=== PATIENT | male | born 1955 ===

== ENCOUNTER 2017-03-31 09:28 | Day surgery (SDC) | payer MEDICARE ==
[2017-03-30 15:08] VITALS: BMI 38.7
[2017-03-31 09:57] LABS: ADD MANUAL DIFF? NO
[2017-03-31 10:05] LABS: BASO # 0.01 K/mm3 (0.0-2.0); BASO % 0.2 % (0.0-3.0); EOS # 0.1 (0.0-0.7); EOS % 2.3 % (1.5-5.0); GRAN # 2.84 (1.4-6.5); GRAN % 47.2 % (50.0-68.0); LYMPH # 2.5 (1.2-3.4); LYMPH % 41.2 % (22.0-35.0); MEAN CORPUSCULAR HEMOGLOBIN 33.6 pg (25.0-35.0); MEAN CORPUSCULAR HGB CONC 33.6 g/dl (31.0-37.0); MONO # 0.6 (0.1-0.6); MONO % 9.1 % (1.0-6.0); PLATELET COUNT 222 10^3/uL (120.0-450.0); RED CELL DISTRIBUTION WIDTH 15.3 % (11.5-14.5)
[2017-03-31 10:08] LABS: CALCIUM 9.4 mg/dL (8.4-10.5); POTASSIUM 4.5 mmol/L (3.6-5.0)
[2017-03-31 10:12] LABS: INR 1.02 (0.93-1.08); PARTIAL THROMBOPLASTIN TIME 30.8 Seconds (23.7-30.8)
--- NOTE | 2017-03-31 10:33 | CP.SDSHP ---
Same Day Surgery H & P - History Proposed Procedure: Fistulogram Pre-Op Diagnosis: ESRD - Previous Medical/Surgical History Cardiac: Hypertension, Hx of CHF Endocrine/Metabolic: Diabetes (Diet controlled), Renal Disease (On HD ) Misc: Other (History of Anxiety,Tinnitus) Previous Surgical History: Hernioraphy. Dialysis catheter insertion. Creation of AV fistula - Allergies Allergies: Allergies shellfish derived Allergy (Verified 12/14/16 13:54) DIZZINESS - Physical Exam General Appearance: Obese male Mental Status: Alert & Oriented x3 Neuro: WNL Heart: WNL Lungs: Other (bibasilar crepts +) - {Optional Preform as Required} Abdomen: Other (abdomen is obese) Other Pertinent Findings: AV shunt noted in the L antecubital region.Bruit +, Thrill +. Trace pretibial edema noted. - Impression Impression: ESRD,on HD - Date & Time Date: 03/31/17 Time: 10:33 Short Stay Discharge - Short Stay Discharge Admitting Diagnosis/Reason for Visit: ESRD N18.6 Referrals: Jayne Boone MD [Primary Care Provider] -
[2017-03-31] MEDS ORDERED: Iodixanol 320 mg/ml 150 ml Bottle IV ONE (11:36)
[2017-03-31] MEDS ORDERED: Lidocaine 2% Inj (20ml) ONE (11:36)
[2017-03-31] MEDS ORDERED: Nitroglycerin 50mg in D5W 50 MG/250 ML BOTTLE IV ONE (11:37)
[2017-03-31] MEDS ORDERED: Midazolam 2 MG/2 ML VIAL ONE ×2 (12:49→13:22)
[2017-03-31] MEDS ORDERED: Oxycodone/Acetaminophen 5/325 mg Tab PO PRN (13:44)
[2017-03-31 14:09] VITALS: RESP 14; TEMP 98; O2SAT 100
[2017-03-31 14:49] VITALS: BP 124/72; PULSE 66
--- NOTE | 2017-04-05 07:51 | VASCULAR ---
PROCEDURE: 1. Left upper extremity AV fistula angiogram 2. Left innominate vein angioplasty HISTORY: End-stage renal disease. Malfunctioning AV access PHYSICIAN(S): Robinson Chiu MD. TECHNIQUE: The relative risks and indications of the procedure were explained to the patient and consent obtained. The patient was placed supine on the angiography table and the left arm prepped and draped in usual sterile fashion. Conscious sedation and monitoring provided throughout the procedure by a nurse. The left arm AV fistula was punctured near the elbow in an antegrade direction under ultrasound guidance with a micropuncture set. A 5 Tajik catheter was placed. An overlapping left upper extremity AV fistula angiogram was performed. Central venous imaging was obtained. Pressure was applied near the access site and reflux of the arterial anastomosis performed. Exchange is made for 7 Tajik sheath at the puncture site. The web-like stenosis in the left innominate vein was crossed with an angled Glidewire. Exchange is made for 0.035 support wire. The left innominate vein stenosis was dilated with a 14 mm balloon. No stent was required. The sheath was removed and hemostasis obtained. FINDINGS: The patient's left upper extremity brachial-cephalic fistula is patent. The arterial anastomosis is normal. The left cephalic vein is well developed above and below the elbow and straight. There is a web-like stenosis of the left innominate vein with collaterals. This was successfully dilated with a 14 mm balloon. The superior vena cava is patent. IMPRESSION: 1. 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 2. Successful left innominate vein angioplasty with a 14 mm balloon. 3. Well developed left brachial- cephalic fistula.
== END 2017-03-31 15:00 | disposition home or self-care (01) ==
LOC: SDSVAS 09:28
PROVIDERS: ATTEND Radiology Vascular & Interventional Radiology
DX: I13.2 Hypertensive heart and chronic kidney disease with heart failure and with stage 5 chronic kidney disease, or end stage renal disease (principal); N18.6 End stage renal disease; E11.22 Type 2 diabetes mellitus with diabetic chronic kidney disease; I50.9 Heart failure, unspecified; Z99.2 Dependence on renal dialysis; F41.9 Anxiety disorder, unspecified; H93.19 Tinnitus, unspecified ear; Z91.013 Allergy to seafood; E66.9 Obesity, unspecified; Z68.38 Body mass index [BMI] 38.0-38.9, adult
CPT/HCPCS: 36415; 36901; 36907; 80048; 85025; 85610; 85730; 99152; C1725; C1769 ×2; C1887; C1894; J1644; J2250; J2405; J3010

== ENCOUNTER 2017-05-23 06:16 | Day surgery (SDC) | payer MEDICARE ==
[2017-05-20 08:10] VITALS: BMI 37.3
[2017-05-23] MEDS ORDERED: Lidocaine 2% Inj (20ml) ONE (06:44)
[2017-05-23] MEDS ORDERED: Iodixanol 320 MG/ML 100 ML BOTTLE IV ONE (06:45)
[2017-05-23] MEDS ORDERED: Nitroglycerin 50mg in D5W 50 MG/250 ML BOTTLE IV ONE (06:45)
[2017-05-23] MEDS ORDERED: Iodixanol 320 MG/ML 200 ML BOTTLE IV ONE (06:45)
[2017-05-23] MEDS ORDERED: Midazolam 2 MG/2 ML VIAL ONE ×3 (07:07→08:20)
[2017-05-23 07:20] VITALS: O2SAT 97
[2017-05-23 07:25] LABS: BASO # 0.02 K/mm3 (0.0-2.0); BASO % 0.3 % (0.0-3.0); EOS # 0.2 (0.0-0.7); EOS % 3.1 % (1.5-5.0); GRAN # 3.57 (1.4-6.5); GRAN % 54.5 % (50.0-68.0); HEMOGLOBIN 11.3 gm/dL (14.0-18.0); LYMPH # 2.2 (1.2-3.4); MEAN CELL VOLUME 102.1 fL (80.0-105.0); MEAN CORPUSCULAR HEMOGLOBIN 34.3 pg (25.0-35.0); MEAN CORPUSCULAR HGB CONC 33.6 g/dl (31.0-37.0); MEAN PLATELET VOLUME 9.8 fl (7.0-11.0); MONO # 0.5 (0.1-0.6); MONO % 8.1 % (1.0-6.0); PLATELET COUNT 190 10^3/uL (120.0-450.0); RBC 3.29 10^6/uL (3.5-6.1); RED CELL DISTRIBUTION WIDTH 14.2 % (11.5-14.5); WHITE BLOOD COUNT 6.6 10^3/ul (4.5-11.0)
[2017-05-23 07:37] LABS: INR 1.01 (0.93-1.08); PARTIAL THROMBOPLASTIN TIME 30.3 Seconds (23.7-30.8); PROTHROMBIN TIME 10.9 Seconds (9.9-11.8)
[2017-05-23 07:39] LABS: CALCIUM 8.9 mg/dL (8.4-10.5)
[2017-05-23] MEDS ORDERED: Famotidine 20mg/50ml 0 MG/0 ML BAG IVPB ONE (07:41)
[2017-05-23] MEDS ORDERED: DiphenhydrAMINE 50 mg/ml Inj ONE (07:41)
--- NOTE | 2017-05-23 07:50 | CP.SDSHP ---
Same Day Surgery H & P - History Proposed Procedure: Femoral angiogram Pre-Op Diagnosis: PVD - Previous Medical/Surgical History Cardiac: Hypertension, Hx of CHF Endocrine/Metabolic: Diabetes, Renal Disease (ESRD on hemodialysis) Misc: Other (Obesity,Anxiety,history of Tinnitus,Restless leg syndrome) Pain: 0. No Pain Comments: Has c/o bilateral calf pain when he walks Previous Surgical History: L inguinal hernioraphy. Dialysis cather insertion. Creation of AV shunt L arm. Fistulogram - Allergies Allergies: Allergies shellfish derived Allergy (Verified 12/14/16 13:54) DIZZINESS - Physical Exam General Appearance: Obese male Vital Signs: Vital Signs 05/23/17 06:35 Temperature 97.8 F Pulse Rate 77 Respiratory 20 Rate Blood Pressure 144/81 O2 Sat by Pulse 97 Oximetry Mental Status: Alert & Oriented x3 Neuro: WNL Heart: WNL Lungs: WNL - {Optional Preform as Required} Abdomen: Other (Obese,old scar in the L inguinal region) Other Pertinent Findings: DP pulses felt by doppler. AV shunt noted in the L arm ,Bruit+,Thrill+. - Impression Impression: PVD - Date & Time Date: 05/23/17 Time: 07:50 Short Stay Discharge - Short Stay Discharge Admitting Diagnosis/Reason for Visit: PVD I70.213 Disposition: HOME/ ROUTINE Referrals: Jayne Boone MD [Primary Care Provider] -
[2017-05-23] MEDS ORDERED: Oxycodone/Acetaminophen 5/325 mg Tab PO PRN (08:42)
[2017-05-23 08:58] VITALS: TEMP 98
[2017-05-23] MEDS ORDERED: Oxycodone/Acetaminophen 5/325 mg Tab ONE (09:05)
[2017-05-23] MEDS ORDERED: Oxycodone/Acetaminophen 5/325 mg Tab PO ONE (09:06)
[2017-05-23 09:36] VITALS: RESP 20
[2017-05-23 10:11] VITALS: BP 183/85; PULSE 76
--- NOTE | 2017-05-23 16:43 | VASCULAR ---
PROCEDURE: Abdominal aortogram and bilateral lower extremity runoff. HISTORY: Peripheral vascular disease with severe claudication. End stage renal disease. Diabetes PHYSICIAN(S): Robinson Chiu MD. TECHNIQUE: The relative risks and indications of the procedure were explained to the patient and consent obtained. The patient was hydrated prior to the procedure and the appropriate labs drawn. The patient was placed supine on the arteriogram table and the right groin prepped and draped in the usual sterile fashion. Conscious sedation and monitoring were provided throughout the procedure by a nurse. Via a right common femoral artery approach, a 5 Niuean sheath was placed in the right groin. Through the sheath and over a guidewire, a 5 Niuean flush catheter was placed in the abdominal aorta at the level of the renal arteries and a PA DSA abdominal aortogram performed. The catheter was pulled down to the aortic bifurcation and bilateral oblique DSA pelvic arteriograms performed. Overlapping bilateral lower extremity DSA arteriograms were obtained from the inguinal ligaments to the ankles. Due to the patient's persistent movement despite additional conscious sedation, no intervention was felt to be safe for performed. The sheath was removed hemostasis obtained with a Perclose device. FINDINGS: All imaging is degraded by motion. Diffuse vascular calcification is noted. The right renal artery is atretic. The left main renal artery is patent. The nephrograms are not well seen, consistent with dialysis. The infrarenal abdominal aorta is calcified patent. Aortic bifurcation is patent. The common and external iliac arteries are patent on two views. The internal iliac arteries are patent bilaterally. Right lower extremity: The right common femoral artery is calcified and patent. The right profunda femoral artery is patent. There is diffuse calcification of the right SFA. Multiple mild to moderate stenosis is seen. There may be a severe web-like stenosis in the adductor canal. The right popliteal artery is continuous. There is severe right trifurcation and tibial occlusive disease. There appears to be a single right tibial runoff via the anterior tibial artery. Is not well seen due to motion. Left lower extremity: Left common femoral artery is calcified and patent. The left profunda femoral artery is calcified and patent. The left SFA is diffusely calcified with multiple mild to moderate stenoses. There appears to be a severe stenosis of the left SFA in the adductor canal. The left popliteal artery is calcified and continuous. Once again the left tibial imaging is severely limited due to motion. There appears to be 1 vessel runoff via the left anterior tibial artery. IMPRESSION: 1. Extremely limited study due to the patient's motion and inability to cooperate. No intervention was performed. 2. Severe bilateral tibial occlusive disease. There appears to be 1 vessel tibial runoff bilaterally but this is not well seen due to motion. 3. Calcified SFA disease bilaterally. Multiple mild to moderate stenoses are present. There may be moderate to severe focal stenoses in the adductor canal. These are not well seen due to motion.
== END 2017-05-23 12:00 | disposition home or self-care (01) ==
LOC: SDSVAS 06:16
PROVIDERS: ATTEND Radiology Vascular & Interventional Radiology
DX: I70.213 Atherosclerosis of native arteries of extremities with intermittent claudication, bilateral legs (principal); E11.51 Type 2 diabetes mellitus with diabetic peripheral angiopathy without gangrene; E11.22 Type 2 diabetes mellitus with diabetic chronic kidney disease; N18.6 End stage renal disease; I50.9 Heart failure, unspecified; I13.2 Hypertensive heart and chronic kidney disease with heart failure and with stage 5 chronic kidney disease, or end stage renal disease; G25.81 Restless legs syndrome; E66.9 Obesity, unspecified; Z99.2 Dependence on renal dialysis
CPT/HCPCS: 36200; 36415; 75625; 75716; 80048; 85025; 85610; 85730; 99152; C1760; C1769; C1887; C1894; J1200; J1644; J1720; J2250; J2405; J3010; Q9967

== ENCOUNTER 2017-08-22 02:14 | Emergency (ER) | payer MEDICARE ==
[2017-08-22 02:15] VITALS: BMI 37.3
--- NOTE | 2017-08-22 02:30 | ED PDOC ---
Arrival/HPI - General Time Seen by Provider: 08/22/17 02:16 Historian: Patient - History of Present Illness Narrative History of Present Illness (Text): 08/22/17 02:20 Bekah Wheeler is a 61 year old male, whose past medical history includes hypertension, diabetes, CHF, and chronic renal failure on dialysis (MWF), who presents to the emergency department complaining of shortness of breath that began about 2 hours ago. Patient notes that he has no breathing treatments at home and has dialysis this morning at 05:00. Patient denies any chest pain, abdominal pain, or any other complaints at this time. Time/Duration: 1-3 hours Symptom Onset: Gradual Symptom Course: Unchanged Severity Level: Mild Activities at Onset: Light Context: Home Past Medical History - Provider Review Nursing Documentation Reviewed: Yes - Infectious Disease Hx of Infectious Diseases: None - Cardiac Hx Pacemaker: No - Pulmonary Hx Respiratory Disorders: No - Neurological Hx Paralysis: No - HEENT Hx HEENT Disorder: No - Renal Hx Renal Disorder: No - Endocrine/Metabolic Hx Endocrine Disorders: Yes Hx Diabetes Mellitus Type 2: Yes - Hematological/Oncological Hx Blood Transfusions: No Hx Blood Transfusion Reaction: No - Integumentary Hx Dermatological Disorder: No - Musculoskeletal/Rheumatological Hx Musculoskeletal Disorders: No - Gastrointestinal Hx Gastrointestinal Disorders: No - Genitourinary/Gynecological Hx Genitourinary Disorders: No - Psychiatric Hx Emotional Abuse: No Hx Physical Abuse: No Hx Substance Use: No - Surgical History Other/Comment: Hernia - Anesthesia Hx Anesthesia Reactions: No Hx Malignant Hyperthermia: No - Suicidal Assessment Feels Threatened In Home Enviroment: No Family/Social History - Physician Review Nursing Documentation Reviewed: Yes Family/Social History: No Known Family HX Smoking Status: Never Smoked Hx Alcohol Use: No Hx Substance Use: No Hx Substance Use Treatment: No Allergies/Home Meds Allergies/Adverse Reactions: Allergies shellfish derived Allergy (Verified 08/22/17 02:36) DIZZINESS Home Medications: Home Meds Medication Instructions Recorded Confirmed Calcium Acetate [Phoslo] 667 mg PO ACTID 12/13/16 05/23/17 Metoprolol Tartrate [Lopressor] 50 mg PO QAM PRN 12/13/16 05/23/17 Pregabalin [Lyrica] 100 mg PO DAILY 03/30/17 05/23/17 rOPINIRole [Requip] 1 mg PO QPM 05/20/17 05/23/17 Review of Systems - Physician Review All systems were reviewed & negative as marked: Yes - Review of Systems Constitutional: absent: Fevers, Night Sweats Eyes: absent: Vision Changes ENT: absent: Hearing Changes Respiratory: SOB Cardiovascular: absent: Chest Pain Gastrointestinal: absent: Abdominal Pain Genitourinary Male: absent: Dysuria, Frequency, Urinary Output Changes Musculoskeletal: absent: Arthralgias Skin: absent: Rash, Pruritis Neurological: absent: Headache, Dizziness Endocrine: absent: Diaphoresis Hemo/Lymphatic: absent: Adenopathy Psychiatric: absent: Depression Physical Exam Vital Signs Temp Pulse Resp BP Pulse Ox 08/22/17 03:37 105 H 26 H 188/89 H 100 08/22/17 02:18 97.8 F 74 28 H 195/94 H 100 - Systems Exam Head: Present: Atraumatic, Normocephalic Pupils: Present: PERRL Extroacular Muscles: Present: EOMI Conjunctiva: Present: Normal Mouth: Present: Moist Mucous Membranes Neck: Present: Normal Range of Motion Respiratory/Chest: Present: Rhonchi (bilaterally) Cardiovascular: Present: Regular Rate and Rhythm, Normal S1, S2. No: Murmurs Abdomen: Present: Normal Bowel Sounds. No: Tenderness, Distention, Peritoneal Signs Back: Present: Normal Inspection Upper Extremity: Present: Normal Inspection. No: Cyanosis, Edema Lower Extremity: Present: Normal Inspection. No: Edema Neurological: Present: GCS=15, CN II-XII Intact, Speech Normal Skin: Present: Warm, Dry, Normal Color. No: Rashes Psychiatric: Present: Alert, Oriented x 3, Normal Insight, Normal Concentration Medical Decision Making ED Course and Treatment: 08/22/17 02:30 Impression: 61 year old male complaining of shortness of breath that began about 2 hours ago. Differential Diagnosis included but are not limited to: Plan: -- EKG -- Chest X-ray -- Labs -- Reassess and disposition Prior Visits: Notes and results from previous visits were reviewed. Patient last seen in the ED on 08/23/16 for shortness of breath for 2-3 days. Patient was admitted to hospitalist care for further evaluation. Progress Notes: EKG: Ordered, reviewed, and independently interpreted the EKG. Rate : 80 BPM Rhythm : NSR Interpretation : Lateral T wave changes Comparison : No previous EKG for comparison. 08/22/17 03:[address] Boone, who is aware and agrees to admit patient to telemetry observation. Patient to go to dialysis shortly. - Lab Interpretations Lab Results: 08/22/17 02:15 08/22/17 02:15 Lab Results 08/22/17 02:38: POC Glucose (mg/dL) 102 08/22/17 02:15: WBC 7.4, RBC 3.49 L, Hgb 11.7 L, Hct 35.1 L, MCV 100.6, MCH 33.5 , MCHC 33.3, RDW 13.7, Plt Count 272, MPV 9.7 08/22/17 02:15: Sodium 139, Potassium 4.8, Chloride 97 L, Carbon Dioxide 25, Anion Gap 22 H, BUN 60 H, Creatinine 11.5 H*, Est GFR ( Amer) 5, Est GFR (Non-Af Amer) 5, Random Glucose 108, Calcium 9.2, Total Bilirubin 0.6, AST 25, ALT 30, Alkaline Phosphatase 75, Lactate Dehydrogenase 449, Total Creatine Kinase 129, Troponin I 0.08 D, NT-Pro-B Natriuret Pep 92467 H, Total Protein 6.9, Albumin 4.1, Globulin 2.9, Albumin/Globulin Ratio 1.4 08/22/17 02:15: PT 11.9, INR 1.09 H, APTT 33.3 I have reviewed the lab results: Yes - RAD Interpretation Narrative RAD Interpretations (Text): 08/22/17 03:30 CXR- c/w CHF Radiology Orders: 08/22/17 02:29 CHEST PORTABLE [RAD] Stat Complaint Inspector: ED Physician - Medication Orders Current Medication Orders: Discontinued Medications Albuterol/Ipratropium (Duoneb 3 Mg/0.5 Mg (3 Ml) Ud) 3 ml IH ONCE STA Stop: 08/22/17 02:32 Last Admin: 08/22/17 02:45 Dose: 3 ml - Scribe Statement The provider has reviewed the documentation as recorded by the Scribe Betsey Sherwood Provider Scribe Attestation: All medical record entries made by the Scribe were at my direction and personally dictated by me. I have reviewed the chart and agree that the record accurately reflects my personal performance of the history, physical exam, medical decision making, and the department course for this patient. I have also personally directed, reviewed, and agree with the discharge instructions and disposition. Disposition/Present on Arrival - Present on Arrival Any Indicators Present on Arrival: No History of DVT/PE: No History of Uncontrolled Diabetes: No Urinary Catheter: No History of Decub. Ulcer: No History Surgical Site Infection Following: None - Disposition Have Diagnosis and Disposition been Completed?: Yes Diagnosis: Renal failure, CHF (congestive heart failure) Disposition: HOSPITALIZED Disposition Time: 03:49 Condition: STABLE Discharge Instructions (ExitCare): Heart Failure (ED)
[2017-08-22] MEDS ORDERED: Albuterol-Ipratrop 3 mg / 0.5 (3 ml) UD IH STA (02:31)
[2017-08-22 02:36] VITALS: TEMP 97.8; O2SAT 100
[2017-08-22 02:45] LABS: HEMATOCRIT 35.1 % (42.0-52.0); MEAN CELL VOLUME 100.6 fl (80.0-105.0); MEAN CORPUSCULAR HEMOGLOBIN 33.5 pg (25.0-35.0); MEAN CORPUSCULAR HGB CONC 33.3 g/dl (31.0-37.0); MEAN PLATELET VOLUME 9.7 fl (7.0-11.0); RED CELL DISTRIBUTION WIDTH 13.7 % (11.5-14.5); WHITE BLOOD COUNT 7.4 10^3/ul (4.5-11.0)
[2017-08-22 02:50] LABS: ALB/GLOB RATIO 1.4 (1.1-1.8); BILIRUBIN,TOTAL 0.6 mg/dL (0.2-1.3); CALCIUM 9.2 mg/dL (8.4-10.5); POTASSIUM 4.8 mmol/L (3.6-5.0); TOTAL PROTEIN 6.9 g/dL (5.8-8.3)
[2017-08-22 02:58] LABS: INR 1.09 (0.93-1.08); PARTIAL THROMBOPLASTIN TIME 33.3 Seconds (25.1-36.5)
[2017-08-22 03:26] LABS: TROPONIN I 0.08 ng/mL
[2017-08-22 04:29] VITALS: BP 198/108; PULSE 80; RESP 21
--- NOTE | 2017-08-22 08:29 | CP.PCM.HP ---
History of Present Illness - History of Present Illness History of Present Illness: 61 year old male with history of type II diabetes with neuropathy, end stage renal disease on hemodialysis, hypertension, and peripheral vascular disease presented to the Emergency Room early this morning with shortness of breath for 2 hours. Patient denies chest pain, diaphoresis, or abdominal pain. Present on Admission - Present on Admission Any Indicators Present on Admission: Yes History of DVT/PE: No History of Uncontrolled Diabetes: Yes Urinary Catheter: No Decubitus Ulcer Present: No Review of Systems - Constitutional Constitutional: absent: Chills, Excessive Sweating, Fever - Cardiovascular Cardiovascular: As Per HPI - Respiratory Respiratory: As Per HPI - Gastrointestinal Gastrointestinal: absent: Abdominal Pain, Nausea, Vomiting Past Patient History - Infectious Disease Hx of Infectious Diseases: None - Past Social History Smoking Status: Never Smoked - CARDIAC Hx Hypertension: Yes Hx Pacemaker: No Hx Peripheral Vascular Disease: Yes - PULMONARY Hx Respiratory Disorders: No - NEUROLOGICAL Hx Paralysis: No - HEENT Hx HEENT Problems: No - RENAL Hx Dialysis: Yes - ENDOCRINE/METABOLIC Hx Endocrine Disorders: Yes Hx Diabetes Mellitus Type 2: Yes - HEMATOLOGICAL/ONCOLOGICAL Hx Blood Transfusions: No Hx Blood Transfusion Reaction: No - INTEGUMENTARY Hx Dermatological Problems: No - MUSCULOSKELETAL/RHEUMATOLOGICAL Hx Musculoskeletal Disorders: No - GASTROINTESTINAL Hx Gastrointestinal Disorders: No - GENITOURINARY/GYNECOLOGICAL Hx Genitourinary Disorders: No - PSYCHIATRIC Hx Emotional Abuse: No Hx Physical Abuse: No Hx Substance Use: No - SURGICAL HISTORY Other/Comment: Hernia - ANESTHESIA Hx Anesthesia Reactions: No Hx Malignant Hyperthermia: No Meds Allergies/Adverse Reactions: Allergies Allergy/AdvReac Type Severity Reaction Status Date / Time shellfish derived Allergy DIZZINESS Verified 08/22/17 02:36 Physical Exam - Constitutional Appears: No Acute Distress - Head Exam Head Exam: ATRAUMATIC, NORMOCEPHALIC - Respiratory Exam Respiratory Exam: Rhonchi - Cardiovascular Exam Cardiovascular Exam: +S1, +S2 - GI/Abdominal Exam GI & Abdominal Exam: Normal Bowel Sounds, Soft. absent: Tenderness - Neurological Exam Neurological exam: Alert, Oriented x3 Results - Vital Signs Recent Vital Signs: Last Vital Signs Temp 97.8 F 08/22/17 02:18 Pulse 80 08/22/17 04:28 Resp 21 08/22/17 04:28 BP 198/108 H 08/22/17 04:28 Pulse Ox 100 08/22/17 04:28 - Labs Result Diagrams: 08/22/17 02:15 08/22/17 02:15 Assessment & Plan - Assessment and Plan (Free Text) Assessment: Acute diastolic heart failure ESRD on hemodialysis HTN DMII PVD Plan: Patient with acute exacerbation of diastolic heart failure. Patient will have hemodialysis today. check iron, B12 and folate levels for anemia continue metoprolol for blood pressure accuchecks with sliding scale coverage
--- NOTE | 2017-08-22 08:59 | RAD ---
HISTORY: Shortness of breath COMPARISON: 08/23/2016. FINDINGS: LUNGS: The lungs are well inflated. There is mild pulmonary venous congestion. There are also prominent interstitial markings in the lower lobes. PLEURA: No significant pleural effusion identified, no pneumothorax apparent. CARDIOVASCULAR: There is persistent mild cardiomegaly OSSEOUS STRUCTURES: No significant abnormalities. VISUALIZED UPPER ABDOMEN: Normal. OTHER FINDINGS: None. IMPRESSION: Pulmonary venous congestion and mild interstitial pulmonary edema may represent a component of congestive heart failure. Persistent cardiomegaly.
[2017-08-22 09:11] LABS: IRON 88 ug/dL (45-180)
--- NOTE | 2017-08-22 09:29 | CARD ---
APPROVED REPORT EKG Measurement Heart [id number] PA 152P0 [id number] <Conclusion> Normal sinus rhythm LVH by voltage T wave abnormality, consider lateral ischemia No change except the QTC is normal now.
[2017-08-22] MEDS ORDERED: Insulin Reg-LOW-Coverage SC SCH (11:30)
--- NOTE | 2017-08-22 12:34 | CP.PCM.PN ---
Subjective - Date & Time of Evaluation Date of Evaluation: 08/22/17 Time of Evaluation: 12:29 - Subjective Subjective: Fluid Overload Objective - Vital Signs/Intake and Output Vital Signs (last 24 hours): Temp Pulse Resp BP Pulse Ox 97.8 F 80 21 198/108 H 100 08/22/17 02:18 08/22/17 04:28 08/22/17 04:28 08/22/17 04:28 08/22/17 04:28 T-98.8 HR-82 B/P-160/84 RR-16 SO2-99% RA at 1234 - Medications Medications: Current Medications Calcium Acetate (Phoslo) 667 mg PO ACTID YONIS Insulin Human Regular (Humulin R Low) 0 units SC ACHS YONIS PRN Reason: Protocol Metoprolol Tartrate (Lopressor) 50 mg PO QAM YONIS Pregabalin (Lyrica) 100 mg PO DAILY YONIS Ropinirole HCl (Requip) 1 mg PO QPM YONIS - Labs Labs: PT 11.9 SECONDS (9.4-12.5) 08/22/17 02:15 INR 1.09 (0.93-1.08) H 08/22/17 02:15 APTT 33.3 Seconds (25.1-36.5) 08/22/17 02:15 - Constitutional Appears: Well, Non-toxic, No Acute Distress - Head Exam Head Exam: ATRAUMATIC, NORMAL INSPECTION, NORMOCEPHALIC - Eye Exam Eye Exam: EOMI, Normal appearance, PERRL Pupil Exam: NORMAL ACCOMODATION, PERRL - ENT Exam ENT Exam: Mucous Membranes Moist, Normal Exam - Neck Exam Neck Exam: Full ROM, Normal Inspection - Respiratory Exam Respiratory Exam: Clear to Ausculation Bilateral, NORMAL BREATHING PATTERN Additional comments: post HD treatment - Cardiovascular Exam Cardiovascular Exam: REGULAR RHYTHM, +S1, +S2 - GI/Abdominal Exam GI & Abdominal Exam: Soft, Normal Bowel Sounds - Extremities Exam Extremities Exam: Full ROM, Normal Capillary Refill, Normal Inspection - Back Exam Back Exam: Full ROM, NORMAL INSPECTION - Neurological Exam Neurological Exam: Alert, Awake, CN II-XII Intact, Normal Gait, Oriented x3 Neuro motor strength exam: Left Upper Extremity: 5, Right Upper Extremity: 5, Left Lower Extremity: 5, Right Lower Extremity: 5 - Psychiatric Exam Psychiatric exam: Normal Affect, Normal Mood - Skin Skin Exam: Dry, Intact, Normal Color, Warm Assessment and Plan - Assessment and Plan (Free Text) Assessment: Fluid Overload Plan: HD TX completed D/C home discussed with Dr. Luna medications as per med reconciliation Will continue with regular HD schedule Patient will see Dr. Luna in office today. Return to ER if indicated discussed with patient stated he will see Dr. Luna today.
[2017-08-22 12:55] LABS: FOLATE 6.9 ng/mL
== END 2017-08-22 12:59 | disposition home or self-care (01) ==
LOC: ED 02:14 → ERH 03:42 → UNDOADMOB 03:42 → ERH 04:00 → ED 12:59 → UNDODISOB 12:59
DX: I12.9 Hypertensive chronic kidney disease with stage 1 through stage 4 chronic kidney disease, or unspecified chronic kidney disease (principal); N18.9 Chronic kidney disease, unspecified; I50.9 Heart failure, unspecified; E11.9 Type 2 diabetes mellitus without complications; Z99.2 Dependence on renal dialysis

== ENCOUNTER 2017-11-14 10:42 | Emergency (ER) | payer MEDICARE ==
[2017-11-14 10:43] VITALS: BMI 37.3
[2017-11-14 11:12] VITALS: RESP 18; TEMP 99
--- NOTE | 2017-11-14 11:25 | ED PDOC ---
Arrival/HPI - General Time Seen by Provider: 11/14/17 10:53 Historian: Patient - History of Present Illness Narrative History of Present Illness (Text): 11/14/17 11:11 A 62 year old male whose past medical history includes, hypertension, diabetes, CHF, and chronic renal failure on dialysis (MWF), presents to the emergency department complaining of urine retention since yesterday morning with a subjective fever which resolved yesterday. The patient notes that he is currently in pain and underwent dialysis this morning with no complications. He states that although he attends dialysis, he urinate 3-4 times per day. The patient states that he had similar symptoms in 08/16. The patient denies chills , headache, dizziness, chest pain, shortness of breath, dyspnea on exertion, cough, nausea, vomiting, diarrhea, back pain, neck pain, bowel changes, or any other complaint. PMD: Dr. Boone Time/Duration: Other (Yesterday) Symptom Onset: Sudden Symptom Course: Unchanged Activities at Onset: Rest, Light Context: Home Past Medical History - Provider Review Nursing Documentation Reviewed: Yes - Infectious Disease Hx of Infectious Diseases: None - Cardiac Hx Hypertension: Yes Hx Pacemaker: No Hx Peripheral Vascular Disease: Yes - Pulmonary Hx Respiratory Disorders: No - Neurological Hx Paralysis: No - HEENT Hx HEENT Disorder: No - Renal Hx Dialysis: Yes - Endocrine/Metabolic Hx Endocrine Disorders: Yes Hx Diabetes Mellitus Type 2: Yes - Hematological/Oncological Hx Blood Transfusions: No Hx Blood Transfusion Reaction: No - Integumentary Hx Dermatological Disorder: No - Musculoskeletal/Rheumatological Hx Musculoskeletal Disorders: No - Gastrointestinal Hx Gastrointestinal Disorders: No - Genitourinary/Gynecological Hx Genitourinary Disorders: No - Psychiatric Hx Emotional Abuse: No Hx Physical Abuse: No Hx Substance Use: No - Surgical History Other/Comment: Hernia - Anesthesia Hx Anesthesia Reactions: No Hx Malignant Hyperthermia: No - Suicidal Assessment Feels Threatened In Home Enviroment: No Family/Social History - Physician Review Nursing Documentation Reviewed: Yes Family/Social History: No Known Family HX Smoking Status: Never Smoked Hx Alcohol Use: No Hx Substance Use: No Hx Substance Use Treatment: No Allergies/Home Meds Allergies/Adverse Reactions: Allergies shellfish derived Allergy (Verified 11/14/17 11:08) DIZZINESS Home Medications: Home Meds Medication Instructions Recorded Confirmed Calcium Acetate [Phoslo] 667 mg PO ACTID 12/13/16 08/22/17 Metoprolol Tartrate [Lopressor] 50 mg PO QAM PRN 12/13/16 08/22/17 Pregabalin [Lyrica] 100 mg PO DAILY 03/30/17 08/22/17 rOPINIRole [Requip] 1 mg PO QPM 05/20/17 08/22/17 Review of Systems - Physician Review All systems were reviewed & negative as marked: Yes - Review of Systems Constitutional: Fevers Respiratory: absent: SOB Cardiovascular: absent: Chest Pain Gastrointestinal: absent: Stool Changes, Diarrhea, Nausea, Vomiting Genitourinary Male: Urinary Output Changes (Urinary retention) Musculoskeletal: absent: Back Pain, Neck Pain Neurological: absent: Headache, Dizziness Physical Exam Vital Signs Reviewed: Yes Vital Signs Temp Pulse Resp BP Pulse Ox 11/14/17 12:53 89 18 175/86 H 97 11/14/17 11:09 99.0 F 96 H 18 193/95 H 100 Temperature: Afebrile Blood Pressure: Hypertensive Pulse: Tachycardic Respiratory Rate: Normal Appearance: Positive for: Well-Appearing, Non-Toxic, Comfortable Pain Distress: Mild (Mild distress due to abdominal discomfort) Mental Status: Positive for: Alert and Oriented X 3 - Systems Exam Head: Present: Atraumatic, Normocephalic Pupils: Present: PERRL Extroacular Muscles: Present: EOMI Conjunctiva: Present: Normal Mouth: Present: Moist Mucous Membranes Neck: Present: Normal Range of Motion Respiratory/Chest: Present: Clear to Auscultation, Good Air Exchange. No: Respiratory Distress, Accessory Muscle Use Cardiovascular: Present: Regular Rate and Rhythm, Normal S1, S2. No: Murmurs Abdomen: Present: Distention (minimally distended). No: Rebound, Guarding, Hernias, Mass/Organomegaly (No palpable masses) Back: Present: Normal Inspection Upper Extremity: Present: Other (left upper extremity dialysis graft with palpable thrill. ) Lower Extremity: Present: Normal Inspection. No: Edema Neurological: Present: GCS=15, CN II-XII Intact, Speech Normal Skin: Present: Warm, Dry, Normal Color. No: Rashes Psychiatric: Present: Alert, Oriented x 3, Normal Insight, Normal Concentration Medical Decision Making ED Course and Treatment: 11/14/17 11:26 Impression: A 62 year old male presents to the emergency department complaining of urinary retention and subjective fever. Plan: -- Urinalysis -- Reassess and disposition Progress Notes: 11/14/17 12:48: 200 cc's of clear yellow urine out. Urinalysis equivocal, however, patient still has symptoms of urgency and fullness of the bladder. Will draw blood cultures and start empiric antibiotics pending results. - Lab Interpretations Lab Results: Lab Results 11/14/17 11:45: Urine Color yellow, Urine Appearance Clear, Urine pH 7.0, Ur Specific Kingsley 1.015, Urine Protein 100 H, Urine Glucose (UA) 250 H, Urine Ketones Negative, Urine Blood Small H, Urine Nitrate Negative, Urine Bilirubin Negative, Urine Urobilinogen 0.2, Ur Leukocyte Esterase Negative, Urine RBC 5 - 10, Urine WBC 2 - 5, Ur Epithelial Cells 6 - 8 - Medication Orders Current Medication Orders: Gentamicin Sulfate 120 mg/ (Sodium Chloride) 103 mls @ 100 mls/hr IVPB STAT STA PRN Reason: Protocol Stop: 11/14/17 13:54 Vancomycin HCl 1.5 gm/ Sodium (Chloride) 250 mls @ 167 mls/hr IVPB ONCE ONE PRN Reason: Protocol Stop: 11/14/17 14:19 - Scribe Statement The provider has reviewed the documentation as recorded by the Jackyibe Hortencia Eden Provider Scribe Attestation: All medical record entries made by the Scribe were at my direction and personally dictated by me. I have reviewed the chart and agree that the record accurately reflects my personal performance of the history, physical exam, medical decision making, and the department course for this patient. I have also personally directed, reviewed, and agree with the discharge instructions and disposition. Disposition/Present on Arrival - Present on Arrival Any Indicators Present on Arrival: No History of DVT/PE: No History of Uncontrolled Diabetes: Yes Urinary Catheter: No History Surgical Site Infection Following: None - Disposition Have Diagnosis and Disposition been Completed?: Yes Diagnosis: Cystitis, Renal failure Disposition: HOME/ ROUTINE Disposition Time: 14:45 Patient Plan: Discharge Condition: STABLE Additional Instructions: Return to ER if symptoms become worse or if high fever develops. Continue usual dialysis schedule. See your doctor this week. Referrals: Jayne Boone MD [Primary Care Provider] - Follow up with primary
[2017-11-14 11:55] LABS: URINE BILIRUBIN NEGATIVE (NEGATIVE); URINE BLOOD SMALL (NEGATIVE); URINE GLUCOSE (UA) 250 mg/dL (NEGATIVE); URINE LEUKOCYTE ESTERASE NEGATIVE Leu/uL (NEGATIVE); URINE NITRATE NEGATIVE (NEGATIVE); URINE PROTEIN 100 mg/dL (<30 mg/dL); URINE UROBILINOGEN 0.2 E.U./dL (<1 E.U./dL)
[2017-11-14 11:59] LABS: URINE APPEARANCE CLEAR (CLEAR)
[2017-11-14 13:46] LABS: EOS % 0.7 % (1.5-5.0); GRAN # 3.02 (1.4-6.5); GRAN % 67.2 % (50.0-68.0); HEMOGLOBIN 13.2 g/dL (14.0-18.0); LYMPH # 0.7 (1.2-3.4); LYMPH % 16.3 % (22.0-35.0); MEAN CELL VOLUME 102.8 fl (80.0-105.0); MEAN CORPUSCULAR HEMOGLOBIN 34.2 pg (25.0-35.0); MEAN CORPUSCULAR HGB CONC 33.2 g/dl (31.0-37.0); MEAN PLATELET VOLUME 9.6 fl (7.0-11.0); MONO # 0.7 (0.1-0.6); MONO % 15.8 % (1.0-6.0); RBC 3.86 10^6/uL (3.5-6.1); RED CELL DISTRIBUTION WIDTH 15.4 % (11.5-14.5); WHITE BLOOD COUNT 4.5 10^3/ul (4.5-11.0)
[2017-11-14 13:49] LABS: CALCIUM 9.8 mg/dL (8.4-10.5)
[2017-11-14 15:36] VITALS: O2SAT 96
[2017-11-14 17:04] VITALS: BP 189/96; PULSE 89
== END 2017-11-14 17:11 | disposition home or self-care (01) ==
LOC: ED 10:42
DX: N30.90 Cystitis, unspecified without hematuria (principal); I12.9 Hypertensive chronic kidney disease with stage 1 through stage 4 chronic kidney disease, or unspecified chronic kidney disease; E11.22 Type 2 diabetes mellitus with diabetic chronic kidney disease; N18.9 Chronic kidney disease, unspecified; Z99.2 Dependence on renal dialysis
CPT/HCPCS: 80048; 81001; 85025; 87040; 87086; 96374; 96375; 99284; J1580

== ENCOUNTER 2017-11-17 03:44 | Emergency (ER) | payer MEDICARE ==
[2017-11-17 03:47] VITALS: BMI 37.3
[2017-11-17 04:09] VITALS: RESP 18; TEMP 98.3
--- NOTE | 2017-11-17 04:24 | ED PDOC ---
Arrival/HPI - General Chief Complaint: Male Genitourinary Time Seen by Provider: 11/17/17 04:15 Historian: Patient - History of Present Illness Narrative History of Present Illness (Text): 11/17/17 04:23 Clarke Wheeler is a 62 year old male, whose past medical history includes ESRD with hemodialysis on M/W/F, hypertension, diabetes, and CHF, who presents to the Emergency department complaining of urinary retention. Patient states he is still able to produce urine despite being on hemodialysis, but has been experiencing difficulty voiding his urine for the past 2 days. Patient notes he was seen on 11/14/17 for similar complaints and had a Rowe catheter placed with relief. Patient states Rowe catheter was removed in ER and patient was discharged home. Patient denies any fever, chills, chest pain, shortness of breath, nausea, vomiting, back pain, neck pain, headache, dizziness, or any other complaints. Symptom Onset: Gradual Symptom Course: Unchanged Activities at Onset: Light Context: Home Past Medical History - Provider Review Nursing Documentation Reviewed: Yes - Infectious Disease Hx of Infectious Diseases: None - Cardiac Hx Hypertension: Yes Hx Pacemaker: No Hx Peripheral Vascular Disease: Yes - Pulmonary Hx Respiratory Disorders: No - Neurological Hx Neurological Disorder: No Hx Paralysis: No - HEENT Hx HEENT Disorder: No - Renal Hx Dialysis: Yes (m/w/f here) Hx Renal Failure: Yes - Endocrine/Metabolic Hx Endocrine Disorders: Yes Hx Diabetes Mellitus Type 2: Yes - Hematological/Oncological Hx Blood Disorders: No Hx Blood Transfusions: No Hx Blood Transfusion Reaction: No - Integumentary Hx Dermatological Disorder: No - Musculoskeletal/Rheumatological Hx Musculoskeletal Disorders: No - Gastrointestinal Hx Gastrointestinal Disorders: No - Genitourinary/Gynecological Hx Genitourinary Disorders: No Other/Comment: dialysis - Psychiatric Hx Psychophysiologic Disorder: No Hx Emotional Abuse: No Hx Physical Abuse: No Hx Substance Use: No - Surgical History Other/Comment: Hernia - Anesthesia Hx Anesthesia Reactions: No Hx Malignant Hyperthermia: No - Suicidal Assessment Feels Threatened In Home Enviroment: No Family/Social History - Physician Review Nursing Documentation Reviewed: Yes Family/Social History: Unknown Family HX Smoking Status: Never Smoked Hx Alcohol Use: No Hx Substance Use: No Hx Substance Use Treatment: No Allergies/Home Meds Allergies/Adverse Reactions: Allergies shellfish derived Allergy (Verified 11/17/17 04:12) DIZZINESS Home Medications: Home Meds Medication Instructions Recorded Confirmed Metoprolol Tartrate [Lopressor] 50 mg PO QAM PRN 12/13/16 11/17/17 rOPINIRole [Requip] 1 mg PO TID 05/20/17 11/17/17 Promethazine HCl/Codeine 5 ml PO Q6 PRN 11/17/17 11/17/17 [Prometh-Codein 6.25-10 mg/5 ml] Review of Systems - Physician Review All systems were reviewed & negative as marked: Yes - Review of Systems Constitutional: Normal. absent: Fevers Eyes: Normal ENT: Normal Respiratory: Normal. absent: SOB, Cough Cardiovascular: Normal. absent: Chest Pain Gastrointestinal: Normal. absent: Abdominal Pain, Diarrhea, Nausea, Vomiting Genitourinary Male: Urinary Output Changes (+urinary retention). absent: Dysuria, Frequency Musculoskeletal: Normal. absent: Back Pain, Neck Pain Skin: Normal. absent: Rash Neurological: Normal. absent: Headache, Dizziness Endocrine: Normal Hemo/Lymphatic: Normal Psychiatric: Normal Physical Exam Vital Signs Reviewed: Yes Vital Signs Temp Pulse Resp BP Pulse Ox 11/17/17 06:35 68 18 179/72 H 98 11/17/17 04:02 98.3 F 87 18 177/78 H 97 Temperature: Afebrile Blood Pressure: Hypertensive Pulse: Regular Respiratory Rate: Normal Appearance: Positive for: Well-Appearing, Non-Toxic, Comfortable Pain Distress: None Mental Status: Positive for: Alert and Oriented X 3 - Systems Exam Head: Present: Atraumatic, Normocephalic Pupils: Present: PERRL Extroacular Muscles: Present: EOMI Conjunctiva: Present: Normal Mouth: Present: Moist Mucous Membranes Neck: Present: Normal Range of Motion Respiratory/Chest: Present: Clear to Auscultation, Good Air Exchange. No: Respiratory Distress, Accessory Muscle Use Cardiovascular: Present: Regular Rate and Rhythm, Normal S1, S2. No: Murmurs Abdomen: Present: Normal Bowel Sounds. No: Tenderness, Distention, Peritoneal Signs Back: Present: Normal Inspection Upper Extremity: Present: Normal Inspection. No: Cyanosis, Edema Lower Extremity: Present: Normal Inspection. No: Edema Neurological: Present: GCS=15, CN II-XII Intact, Speech Normal Skin: Present: Warm, Dry, Normal Color. No: Rashes Psychiatric: Present: Alert, Oriented x 3, Normal Insight, Normal Concentration Medical Decision Making ED Course and Treatment: 11/17/17 04:23 Impression: 62 year old male complaining of urinary retention for 2 days. Differential Diagnosis included but are not limited to: urinary retention Plan: -- Rapid influenza -- Rowe catheter placement -- Reassess and disposition Prior Visits: Notes and results from previous visits were reviewed. On 11/14/2017, pt was seen in the Emergency department for urinary retention with subjective fever. Pt had a rowe catheter placed with 200cc of urine output. pt insisted on rowe removal dcd to follow up with urology Pt was d/c home. Progress Notes: 11/17/17 04:32 PROCEDURE: Rowe Catheter Placement Performed by the emergency provider Consent: Informed consent, after discussion of the risks, benefits, and alternatives to the procedure was obtained. Timeout: A timeout to verify the correct patient, procedure, and site was performed. Indication: Urinary retention Procedure: 18 Uzbek Rowe catheter inserted without difficulty. Urine draining. Post-procedure: The patient tolerated the procedure well with no immediate complications 11/20/17 14:57 - Lab Interpretations Lab Results: Lab Results 11/17/17 04:40: Influenza Typ A,B (EIA) Negative for flu a/b - Medication Orders Current Medication Orders: Discontinued Medications Phenazopyridine HCl (Pyridium) 200 mg PO STAT STA Stop: 11/17/17 05:28 Last Admin: 11/17/17 05:35 Dose: 200 mg - Scribe Statement The provider has reviewed the documentation as recorded by the Laurence Welch Provider Scribe Attestation: All medical record entries made by the Laurence were at my direction and personally dictated by me. I have reviewed the chart and agree that the record accurately reflects my personal performance of the history, physical exam, medical decision making, and the department course for this patient. I have also personally directed, reviewed, and agree with the discharge instructions and disposition. Disposition/Present on Arrival - Present on Arrival Any Indicators Present on Arrival: No History of DVT/PE: No History of Uncontrolled Diabetes: Yes Urinary Catheter: No History of Decub. Ulcer: No History Surgical Site Infection Following: None - Disposition Have Diagnosis and Disposition been Completed?: Yes Diagnosis: Urinary retention Disposition: HOME/ ROUTINE Disposition Time: 06:55 Condition: FAIR Discharge Instructions (ExitCare): Urinary Retention in Men (ED) Prescriptions: Cephalexin [Keflex] 500 mg PO BID #14 capsule Phenazopyridine [Pyridium] 200 mg PO PC #6 tab Referrals: Jose Obrien MD [Staff Provider] - Follow up with primary Forms: [employer] (Estonian)
[2017-11-17 06:36] VITALS: BP 179/72; PULSE 68; O2SAT 98
== END 2017-11-17 06:55 | disposition home or self-care (01) ==
LOC: ED 03:44
DX: R33.9 Retention of urine, unspecified (principal); I12.0 Hypertensive chronic kidney disease with stage 5 chronic kidney disease or end stage renal disease; N18.6 End stage renal disease; Z99.2 Dependence on renal dialysis; I50.9 Heart failure, unspecified; E11.9 Type 2 diabetes mellitus without complications

== ENCOUNTER 2018-02-26 23:50 | Emergency (ER) | payer MEDICARE ==
[2018-02-26 23:51] VITALS: BMI 34.4
[2018-02-27] VITALS: TEMP 98.2
--- NOTE | 2018-02-27 00:20 | ED PDOC ---
Arrival/HPI - General Chief Complaint: Shortness Of Breath Time Seen by Provider: 02/26/18 23:52 Historian: Patient - History of Present Illness Narrative History of Present Illness (Text): 02/27/18 00:00 Clarke Wheeler is a 62 year old male, whose past medical history includes ESRD with hemodialysis on M/W/F, hypertension, diabetes, CHF, and restless leg syndrome, who presents to the Emergency department complaining of shortness of breath for 1 hour prior to arrival. Patient reports associated orthopnea. Patient denies any fever, chills, nausea, vomiting, diarrhea, urinary symptoms, back pain, neck pain, headache, dizziness, or any other complaints. Time/Duration: 1 hour Symptom Onset: Gradual Symptom Course: Unchanged Activities at Onset: Light Context: Home Past Medical History - Provider Review Nursing Documentation Reviewed: Yes - Infectious Disease Hx of Infectious Diseases: None - Cardiac Hx Cardiac Disorders: Yes Hx Hypertension: Yes Hx Peripheral Edema: Yes Hx Peripheral Vascular Disease: Yes - Pulmonary Hx Respiratory Disorders: No - Neurological Hx Neurological Disorder: No Hx Paralysis: No - HEENT Hx HEENT Disorder: Yes Hx Cataracts: Yes (RIGHT EYE) - Renal Hx Renal Disorder: Yes Date of Last Dialysis Treatment: 02/01/18 Hx Renal Failure: Yes - Endocrine/Metabolic Hx Endocrine Disorders: Yes Hx Diabetes Mellitus Type 2: Yes - Hematological/Oncological Hx Blood Disorders: No Hx Blood Transfusions: No Hx Blood Transfusion Reaction: No - Integumentary Hx Dermatological Disorder: No - Musculoskeletal/Rheumatological Hx Musculoskeletal Disorders: Yes Hx Falls: No Hx Fractures: Yes Other/Comment: HX-fell from 3rd floor broke his arms and legs ag - Gastrointestinal Hx Gastrointestinal Disorders: No - Genitourinary/Gynecological Hx Genitourinary Disorders: No - Psychiatric Hx Psychophysiologic Disorder: Yes Hx Anxiety: Yes Hx Depression: Yes Hx Substance Use: No - Surgical History Hx Angiogram: Yes (PERIPHERIAL ANGIOGRAM/ANGIOPLASTY 12/29/17) Hx Arteriovenous Shunt: Yes (LEFT UPPER ARM AV SHUNT) - Anesthesia Hx Anesthesia: Yes Hx Anesthesia Reactions: No Hx Malignant Hyperthermia: No - Suicidal Assessment Feels Threatened In Home Enviroment: No Family/Social History - Physician Review Nursing Documentation Reviewed: Yes Family/Social History: Unknown Family HX Smoking Status: Never Smoked Hx Alcohol Use: No Hx Substance Use: No Hx Substance Use Treatment: No Allergies/Home Meds Allergies/Adverse Reactions: Allergies shellfish derived Allergy (Intermediate, Verified 02/26/18 23:52) DIZZINESS Home Medications: Home Meds Medication Instructions Recorded Confirmed Metoprolol Tartrate [Lopressor] 50 mg PO DAILY 12/13/16 02/26/18 rOPINIRole [Requip] 1 mg PO TID 05/20/17 02/26/18 Calcium Acetate [Phoslo] 4 tab PO TID 12/20/17 02/26/18 Quetiapine Fumarate [Seroquel] 50 mg PO DAILY 12/20/17 02/26/18 Sevelamer Carbonate [Renvela] 3 tab PO TID 12/20/17 02/26/18 Review of Systems - Physician Review All systems were reviewed & negative as marked: Yes - Review of Systems Constitutional: Normal. absent: Fevers Eyes: Normal ENT: Normal Respiratory: SOB. absent: Cough Cardiovascular: Orthopnea Gastrointestinal: Normal. absent: Abdominal Pain, Diarrhea, Nausea, Vomiting Genitourinary Male: Normal. absent: Dysuria, Frequency, Hematuria, Urinary Output Changes Musculoskeletal: Normal. absent: Back Pain, Neck Pain Skin: Normal. absent: Rash Neurological: Normal. absent: Headache, Dizziness Endocrine: Normal Hemo/Lymphatic: Normal Psychiatric: Normal Physical Exam Vital Signs Reviewed: Yes Vital Signs Temp Pulse Resp BP Pulse Ox 02/27/18 02:13 80 18 169/105 H 100 02/27/18 01:34 89 196/113 H 02/27/18 01:23 87 20 199/84 H 100 02/27/18 00:51 197/95 H 02/27/18 00:00 22 100 02/26/18 23:55 98.2 F 98 H 28 H 197/95 H 86 L Temperature: Afebrile Blood Pressure: Hypertensive Pulse: Regular Respiratory Rate: Normal Appearance: Positive for: Well-Appearing, Non-Toxic, Comfortable Pain Distress: None Mental Status: Positive for: Alert and Oriented X 3 - Systems Exam Head: Present: Atraumatic, Normocephalic Pupils: Present: PERRL Extroacular Muscles: Present: EOMI Conjunctiva: Present: Normal Mouth: Present: Moist Mucous Membranes Neck: Present: Normal Range of Motion Respiratory/Chest: Present: Rales (Rales at bilateral bases). No: Respiratory Distress, Accessory Muscle Use Cardiovascular: Present: Regular Rate and Rhythm, Normal S1, S2. No: Murmurs Abdomen: No: Tenderness, Distention, Peritoneal Signs Back: Present: Normal Inspection Upper Extremity: Present: Normal Inspection. No: Cyanosis, Edema Lower Extremity: Present: Normal Inspection. No: Edema Neurological: Present: GCS=15, CN II-XII Intact, Speech Normal Skin: Present: Warm, Dry, Normal Color. No: Rashes Psychiatric: Present: Alert, Oriented x 3, Normal Insight, Normal Concentration Medical Decision Making ED Course and Treatment: 02/27/18 00:00 Impression: 62 year old male complaining of shortness of breath and orthopnea. Plan: -- EKG -- Chest X-ray -- Labs, cardiac enzymes, BNP, VBG, blood cultures -- Lasix -- Reassess and disposition Prior Visits: Notes and results from previous visits were reviewed. On 11/17/2017, pt was seen in the Emergency department for urinary retention. Pt was d/c home. Progress Notes: Reviewed EKG, NSR at [address] bpm[address] Non-specific ST/T wave changes. 02/27/18 01:20 Chest X-ray reviewed, shows cardiomegaly with mild CHF. Pt hypertensive at 199/87, Tridil drip ordered. 02/27/18 02:[address] Boone, who is aware and agrees with plan. Accepts pt in to his service. 02/27/18 02:45 Discussed results and hospital admission plan with pt, pt states he does not wish to stay and would like to go home. The patient is choosing to leave against medical advice. I have personally explained to the patient that choosing to do so may result in permanent bodily harm or . I have discussed at great length that without further evaluation and monitoring there may be unforeseen circumstances and/or deterioration causing permanent bodily harm or as a result of their choice. The patient is alert, oriented, and shows the mental capacity to make clear decisions regarding the patients health care at this time. The patient continues to wish to leave against medical advice. In light of the patients decision to leave against medical advice, patient is aware of the importance to following up as instructed. The patient has been advised that they should return to the emergency room immediately if they change their mind at any time, or if their condition begins to change or worsen in any way.. - Lab Interpretations Lab Results: 02/27/18 00:10 02/27/18 00:10 Lab Results 02/27/18 00:10: Sodium 136, Chloride 93 L, Potassium 4.3, Carbon Dioxide 26, Anion Gap 20, BUN 48 H, Creatinine 10.7 H* D, Est GFR ( Amer) 6, Est GFR (Non-Af Amer) 5, Random Glucose 123 H, Calcium 9.9, Total Bilirubin 0.6, AST 29 , ALT 31, Alkaline Phosphatase 76, Lactate Dehydrogenase 431, Total Creatine Kinase 125, Troponin I 0.08, NT-Pro-B Natriuret Pep 07559 H, Total Protein 7.4, Albumin 4.3, Globulin 3.1, Albumin/Globulin Ratio 1.4 02/27/18 00:10: pO2 131 H, VBG pH 7.37, VBG pCO2 49.0, VBG HCO3 28.3 H, VBG Total CO2 29.8 H, VBG O2 Sat (Calc) 99.6 H, VBG Base Excess 2.2 H, VBG Potassium 4.4, Sodium 133.0, Chloride 97.0 L, Glucose 127 H, Lactate 1.1, FiO2 21.0, Venous Blood Potassium 4.4 02/27/18 00:10: PT 12.1, INR 1.06, APTT 33.5 02/27/18 00:10: WBC 8.5 D, RBC 3.58, Hgb 11.8 L, Hct 35.5 L, MCV 99.2 D, MCH 33.0, MCHC 33.2, RDW 14.4, Plt Count 270, MPV 9.3, Gran % 67.7, Lymph % (Auto) 23.5, Barton % (Auto) 5.9, Eos % (Auto) 2.8, Baso % (Auto) 0.1, Gran # 5.78, Lymph # (Auto) 2.0, Barton # (Auto) 0.5, Eos # (Auto) 0.2, Baso # (Auto) 0.01 I have reviewed the lab results: Yes - RAD Interpretation Radiology Orders: 02/27/18 00:02 CHEST PORTABLE [RAD] Stat Wood Heel Finisher: ED Physician - EKG Interpretation Interpreted by ED Physician: Yes Type: 12 lead EKG - Medication Orders Current Medication Orders: Discontinued Medications Furosemide (Lasix) 60 mg IVP ONCE ONE Stop: 02/27/18 00:30 Last Admin: 02/27/18 00:51 Dose: 60 mg MAR Blood Pressure Document 02/27/18 00:51 RG (Rec: 02/27/18 00:53 RG [id number]) Blood Pressure Blood Pressure (100/60-150/90) 197/95 IVP Administration Document 02/27/18 00:51 RG (Rec: 02/27/18 00:53 RG [id number]) Charges for Administration # of IVP Administrations 1 Nitroglycerin/Dextrose (Nitroglycerin 50 Mg/250 Ml D5w) 50 mg in 250 mls @ 1.5 mls/hr IV .Q24H PRN; Protocol; 5 MCG/MIN PRN Reason: Systolic Blood Pressure Last Admin: 02/27/18 01:34 Dose: 1.5 mls/hr eMAR Start Stop Document 02/27/18 01:34 RG (Rec: 02/27/18 01:37 RG [id number]) Intravenous Solution Start Date 02/27/18 Start Time 01:34 MAR Pulse and Blood Pressure Document 02/27/18 01:34 RG (Rec: 02/27/18 01:37 RG [id number]) Pulse Pulse Rate (60-90) 89 Blood Pressure Blood Pressure (100/60-150/90) 196/113 - Scribe Statement The provider has reviewed the documentation as recorded by the Scribe Waleska Welch All medical record entries made by the Scribe were at my direction and personally dictated by me. I have reviewed the chart and agree that the record accurately reflects my personal performance of the history, physical exam, medical decision making, and the department course for this patient. I have also personally directed, reviewed, and agree with the discharge instructions and disposition. Disposition/Present on Arrival - Present on Arrival Any Indicators Present on Arrival: No History of DVT/PE: No History of Uncontrolled Diabetes: Yes Urinary Catheter: No History of Decub. Ulcer: No History Surgical Site Infection Following: None - Disposition Have Diagnosis and Disposition been Completed?: Yes Diagnosis: CHF (congestive heart failure), Renal failure Disposition: AGAINST MEDICAL ADVICE Disposition Time: 02:45 Condition: UNKNOWN Discharge Instructions (ExitCare): Heart Failure (ED) Forms: [employer] (Frisian)
[2018-02-27 00:22] LABS: BASO # 0.01 K/mm3 (0.0-2.0); BASO % 0.1 % (0.0-3.0); EOS # 0.2 (0.0-0.7); EOS % 2.8 % (1.5-5.0); GRAN # 5.78 (1.4-6.5); GRAN % 67.7 % (50.0-68.0); HEMOGLOBIN 11.8 g/dL (14.0-18.0); LYMPH % 23.5 % (22.0-35.0); MEAN CORPUSCULAR HGB CONC 33.2 g/dl (31.0-37.0); MEAN PLATELET VOLUME 9.3 fl (7.0-11.0); MONO # 0.5 (0.1-0.6); MONO % 5.9 % (1.0-6.0); RBC 3.58 10^6/uL (3.5-6.1); RED CELL DISTRIBUTION WIDTH 14.4 % (11.5-14.5); WHITE BLOOD COUNT 8.5 10^3/ul (4.5-11.0)
[2018-02-27 00:24] LABS: MEAN CELL VOLUME 99.2 fl (80.0-105.0)
[2018-02-27 00:34] LABS: PROTHROMBIN TIME 12.1 SECONDS (9.4-12.5)
[2018-02-27 00:35] LABS: INR 1.06 (0.93-1.08); PARTIAL THROMBOPLASTIN TIME 33.5 Seconds (25.1-36.5)
[2018-02-27 00:36] LABS: VENOUS BLOOD GAS BASE EXCESS 2.2 mmol/L (0.0-2.0); VENOUS BLOOD GAS PO2 131 mm/Hg (30-55); VENOUS BLOOD PH 7.37 (7.32-7.43)
[2018-02-27 00:46] LABS: TROPONIN I 0.08 ng/mL
[2018-02-27 00:51] LABS: ALB/GLOB RATIO 1.4 (1.1-1.8); ALBUMIN 4.3 g/dL (3.0-4.8); CALCIUM 9.9 mg/dL (8.4-10.5)
[2018-02-27] MEDS ORDERED: Nitroglycerin 50mg in D5W 50 MG/250 ML BOTTLE IV PRN (01:21)
[2018-02-27 01:23] VITALS: O2SAT 100
[2018-02-27 02:15] VITALS: BP 169/105; PULSE 80; RESP 18
--- NOTE | 2018-02-27 08:49 | RAD ---
HISTORY: Shortness of breath. COMPARISON: 10/22/2017 FINDINGS: LUNGS: Worsening pulmonary vascular congestion PLEURA: No significant pleural effusion identified, no pneumothorax apparent. CARDIOVASCULAR: Cardiomegaly/mild CHF OSSEOUS STRUCTURES: No significant abnormalities. VISUALIZED UPPER ABDOMEN: Normal. OTHER FINDINGS: None. IMPRESSION: Congestive heart failure progressive compared to the prior study 08/22/2017
--- NOTE | 2018-02-27 20:35 | CARD ---
APPROVED REPORT EKG Measurement Heart [id number] <Conclusion> Normal sinus rhythm Possible Left atrial enlargement Prolonged QT Abnormal ECG
== END 2018-02-27 04:02 | disposition left against medical advice (07) ==
LOC: ED 23:50
DX: I50.9 Heart failure, unspecified (principal); I12.0 Hypertensive chronic kidney disease with stage 5 chronic kidney disease or end stage renal disease; N18.6 End stage renal disease; E11.9 Type 2 diabetes mellitus without complications; Z99.2 Dependence on renal dialysis
CPT/HCPCS: 71045; 80053; 82550; 82803; 83615; 83880; 84484; 85025; 85610; 85730; 93005; 96374; 99284; J1940

== ENCOUNTER 2018-09-26 11:12 | Day surgery (SDC) | payer MEDICARE, OTHER ==
[2018-09-26 11:29] LABS: BASO # 0.01 K/mm3 (0.0-2.0); BASO % 0.1 % (0.0-3.0); EOS # 0.1 (0.0-0.7); EOS % 1.5 % (1.5-5.0); GRAN # 5.3 (1.4-6.5); GRAN % 60.7 % (50.0-68.0); HEMOGLOBIN 14.5 g/dL (14.0-18.0); LYMPH # 2.2 (1.2-3.4); LYMPH % 25.5 % (22.0-35.0); MEAN CELL VOLUME 103.2 fl (80.0-105.0); MEAN CORPUSCULAR HEMOGLOBIN 35.5 pg (25.0-35.0); MEAN CORPUSCULAR HGB CONC 34.4 g/dl (31.0-37.0); MEAN PLATELET VOLUME 11.2 fl (7.0-11.0); MONO # 1.1 (0.1-0.6); MONO % 12.2 % (1.0-6.0); RBC 4.09 10^6/uL (3.5-6.1); RED CELL DISTRIBUTION WIDTH 15.9 % (11.5-14.5); WHITE BLOOD COUNT 8.7 10^3/uL (4.5-11.0)
[2018-09-26 11:36] LABS: INR 1.21; PARTIAL THROMBOPLASTIN TIME 33.9 Seconds (25.1-36.5)
[2018-09-26] MEDS ORDERED: Iodixanol 320 MG/ML 200 ML BOTTLE IV ONE (11:54)
[2018-09-26] MEDS ORDERED: Lidocaine 2% Inj (20ml) ONE (11:54)
[2018-09-26 12:04] LABS: CALCIUM 8.6 mg/dL (8.4-10.5)
[2018-09-26] MEDS ORDERED: DiphenhydrAMINE 50 mg/ml Inj ONE (12:05)
[2018-09-26] MEDS ORDERED: Midazolam 2 MG/2 ML VIAL ONE (12:15)
[2018-09-26 14:33] VITALS: TEMP 98.3
[2018-09-26 14:51] VITALS: PULSE 68; RESP 17; O2SAT 94
[2018-09-26 15:56] VITALS: BP 170/84
--- NOTE | 2018-09-26 19:44 | VASCULAR ---
PROCEDURE: 1. Left upper extremity AV fistula angiogram 2. Left perianastomotic angioplasty HISTORY: End-stage renal disease. Malfunctioning AV access PHYSICIAN(S): Robinson Chiu MD. TECHNIQUE: The relative risks and indications of the procedure were explained the patient consent obtained. Patient placed supine on the arteriogram table and preliminary sonography of the fistula performed. This revealed a narrowed perianastomotic anastomosis. The visualized proximal left cephalic vein is well developed and patent. A retrograde puncture was selected. The areas prepped and draped usual sterile fashion. Conscious sedation monitoring were provided throughout the procedure by a nurse. Under direct ultrasound guidance, the left AV fistula was punctured in a retrograde direction near the elbow. A 5 Georgian catheter was placed. Imaging in the anastomosis was obtained. Overlapping imaging of the venous outflow was performed. Central venous imaging was obtained. A Glidewire was placed. A 6 Georgian sheath was placed at the puncture site. Exchange is made for a 0.018 support wire placed in the left brachial artery. The perianastomotic stenosis was dilated with a 6 and 7 mm balloon. A good angiographic result was obtained. Completion angiograms were obtained. No stent was required. The sheath was removed and hemostasis obtained with a purse string suture. FINDINGS: The patient is left brachial-cephalic fistula is patent. There is a 2 centimeters severe narrowing in the perianastomotic region. Limited imaging of the distal left brachial artery is patent. The left cephalic venous outflow is well developed and patent. Small pseudoaneurysms are seen just above the elbow. The left cephalic vein is patent and well developed. The left subclavian vein, left axillary vein, left innominate vein and SVC are patent. IMPRESSION: 1. Successful perianastomotic angioplasty with 6 and 7 mm balloons. 2. Well developed left brachial-cephalic fistula. No central stenosis is appreciated.
== END 2018-09-26 16:00 | disposition home or self-care (01) ==
LOC: SDSVAS 11:12
PROVIDERS: ATTEND Radiology Vascular & Interventional Radiology
DX: T82.858A Stenosis of other vascular prosthetic devices, implants and grafts, initial encounter (principal); N18.6 End stage renal disease
CPT/HCPCS: 36415; 36902; 76937; 80048; 85025; 85610; 85730; 99152; 99153; C1725 ×2; C1769 ×2; C1894; J1200; J1644; J2250; J2405; J3010; Q9966

== ENCOUNTER 2018-10-09 10:12 | Emergency (ER) | payer MEDICARE, OTHER ==
[2018-10-09 10:14] VITALS: BMI 34.7
--- NOTE | 2018-10-09 10:54 | ED PDOC ---
Arrival/HPI - General Chief Complaint: Lower Extremity Problem/Injury Time Seen by Provider: 10/09/18 10:20 Historian: Patient - History of Present Illness Narrative History of Present Illness (Text): 10/09/18 10:51 62yo male with pmhx of hypertension, Diabetes, ESRD (dialysis MWF) present from dialysis for complaint of intermittent b/l foot pain/numbness x weeks. States he saw his PMD for the pain and was referred to a Purchasing Department Clerk, but the appointment he have is for December. Notes that he is not on pain medication. Pain is on his plantar surface and usually with weight bearing and ambulation. Denies fever, chills, calf pain, chest pain, SOB, diaphoresis, redness, any other complaint. Past Medical History - Provider Review Nursing Documentation Reviewed: Yes - Infectious Disease Hx of Infectious Diseases: None - Cardiac Hx Cardiac Disorders: Yes Hx Hypertension: Yes Hx Peripheral Edema: Yes Hx Peripheral Vascular Disease: Yes - Pulmonary Hx Respiratory Disorders: No - Neurological Hx Paralysis: No - HEENT Hx HEENT Disorder: Yes Hx Cataracts: Yes (RIGHT EYE) - Renal Date of Last Dialysis Treatment: 02/01/18 - Endocrine/Metabolic Hx Endocrine Disorders: Yes Hx Diabetes Mellitus Type 2: Yes - Hematological/Oncological Hx Blood Transfusions: No Hx Blood Transfusion Reaction: No - Integumentary Hx Dermatological Disorder: No - Musculoskeletal/Rheumatological Hx Musculoskeletal Disorders: No - Gastrointestinal Hx Gastrointestinal Disorders: No - Genitourinary/Gynecological Hx Genitourinary Disorders: No - Psychiatric Hx Physical Abuse: No Hx Substance Use: No - Surgical History Other/Comment: Av shunt on the left arm - Anesthesia Hx Anesthesia: Yes Hx Anesthesia Reactions: No Hx Malignant Hyperthermia: No - Suicidal Assessment Feels Threatened In Home Enviroment: No Family/Social History - Physician Review Nursing Documentation Reviewed: Yes Family/Social History: Unknown Family HX Smoking Status: Never Smoked Hx Alcohol Use: No Hx Substance Use: No Hx Substance Use Treatment: No Allergies/Home Meds Allergies/Adverse Reactions: Allergies shellfish derived Allergy (Intermediate, Verified 02/26/18 23:52) DIZZINESS Home Medications: Home Meds Medication Instructions Recorded Confirmed RX: rOPINIRole [Requip] 1 mg PO TID 05/20/17 09/26/18 Calcium Acetate [Phoslo] 4 tab PO TID 12/20/17 09/26/18 Furosemide [Lasix] 40 mg PO DAILY PRN 09/20/18 09/26/18 Pregabalin [Lyrica] 100 mg PO BID 09/20/18 09/26/18 RX: traMADol [Ultram] 50 mg PO BID 09/20/18 09/26/18 Review of Systems - Physician Review All systems were reviewed & negative as marked: Yes - Review of Systems Constitutional: Normal Eyes: Normal ENT: Normal Respiratory: Normal Cardiovascular: Normal Gastrointestinal: Normal Genitourinary Male: Normal Musculoskeletal: Arthralgias (B/L foot) Skin: Normal Neurological: Normal Endocrine: Normal Hemo/Lymphatic: Normal Psychiatric: Normal Physical Exam Vital Signs Reviewed: Yes Temperature: Afebrile Blood Pressure: Normal Pulse: Regular Respiratory Rate: Normal Appearance: Positive for: Well-Appearing, Non-Toxic, Comfortable Pain Distress: None Mental Status: Positive for: Alert and Oriented X 3 - Systems Exam Head: Present: Atraumatic, Normocephalic Pupils: Present: PERRL Extroacular Muscles: Present: EOMI Conjunctiva: Present: Normal Mouth: Present: Moist Mucous Membranes Neck: Present: Normal Range of Motion Respiratory/Chest: Present: Clear to Auscultation, Good Air Exchange. No: Respiratory Distress, Accessory Muscle Use Cardiovascular: Present: Regular Rate and Rhythm, Normal S1, S2. No: Murmurs Abdomen: No: Tenderness, Distention, Peritoneal Signs Back: Present: Normal Inspection Upper Extremity: Present: Normal Inspection. No: Cyanosis, Edema Lower Extremity: Present: Normal Inspection, NORMAL PULSES, Normal ROM, Neurovascularly Intact. No: Edema, CALF TENDERNESS, Anmol's Sign, Tenderness, Swelling, Erythema, Temperature Abnormalties Neurological: Present: GCS=15, CN II-XII Intact, Speech Normal Skin: Present: Warm, Dry, Normal Color. No: Rashes Psychiatric: Present: Alert, Oriented x 3, Normal Insight, Normal Concentration Medical Decision Making ED Course and Treatment: 10/09/18 19:04 PT in ED for stated history. B/L Doppler US - Negative for DVT, per US tech Left foot xray IMPRESSION: Age indeterminate fracture at the distal phalanx of the 3rd toe. Right foot xray IMPRESSION: No evidence of acute displaced fracture or dislocation. Arthritic degenerative changes. Pt does not have focal tenderness over his 3rd toe. Finding is incidental. All reports was DW the pt who reports chronic pain history. States he was placed on Tramadol and it was changed to Lyrica for lack of pain relieve. He is referred to a Purchasing Department Clerk. - RAD Interpretation Radiology Orders: 10/09/18 10:45 FOOT LEFT 3 VIEWS ROUTINE [RAD] Stat FOOT RIGHT 3 VIEWS ROUTINE [RAD] Stat 10/09/18 10:46 DUPLEX LOWER EXTRM VEIN BILAT [US] Stat - Medication Orders Current Medication Orders: Discontinued Medications Tramadol HCl (Ultram) 50 mg PO STAT STA Stop: 10/09/18 10:47 Disposition/Present on Arrival - Present on Arrival Any Indicators Present on Arrival: No History of DVT/PE: No History of Uncontrolled Diabetes: Yes Urinary Catheter: No History of Decub. Ulcer: No History Surgical Site Infection Following: None - Disposition Have Diagnosis and Disposition been Completed?: Yes Diagnosis: Foot pain Disposition: HOME/ ROUTINE Disposition Time: 12:50 Patient Plan: Discharge Condition: STABLE Discharge Instructions (ExitCare): Heel Pain (Caused by Plantar Fasciitis) Additional Instructions: Follow up with a Purchasing Department Clerk Return to ED for any new or worsening symptoms Prescriptions: RX: traMADol [Ultram] 50 mg PO BID #10 tab Referrals: Jayne Boone MD [Primary Care Provider] - Follow up with primary Robinson Romo DPM [Staff Provider] - Follow up with primary Forms: [employer] (Slovak)
[2018-10-09 10:58] VITALS: RESP 18; O2SAT 95
[2018-10-09 12:35] VITALS: BP 154/91; PULSE 100; TEMP 98.4
--- NOTE | 2018-10-09 12:45 | RAD ---
Date of service: 10/09/2018 PROCEDURE: Left Foot Radiographs. HISTORY: foot pain COMPARISON: None. FINDINGS: BONES: Age indeterminate fracture noted at the distal phalanx of the 3rd toe. Please correlate clinically. JOINTS: Arthritic degenerative changes are noted. SOFT TISSUES: Vascular calcification and mild soft tissue swelling is noted. OTHER FINDINGS: None. IMPRESSION: Age indeterminate fracture at the distal phalanx of the 3rd toe.
--- NOTE | 2018-10-09 13:20 | RAD ---
Date of service: 10/09/2018 PROCEDURE: Right Foot Radiographs. HISTORY: foot pain COMPARISON: None. FINDINGS: BONES: No evidence of acute displaced fracture. JOINTS: Arthritic degenerative changes are noted. SOFT TISSUES: Vascular calcification is noted. Mild soft tissue swelling. OTHER FINDINGS: None. IMPRESSION: No evidence of acute displaced fracture or dislocation. Arthritic degenerative changes.
--- NOTE | 2018-10-09 14:08 | US ---
HISTORY: Leg pain and swelling. Evaluate for DVT PHYSICIAN(S): Robinson Chiu MD. TECHNIQUE: Duplex sonography and color-flow Doppler with graded compression were used to evaluate the deep venous systems of both lower extremities. FINDINGS: The visualized deep venous systems of both lower extremities are sonographically normal and compressible. Normal wave forms and augmentation are seen. There is no sonographic evidence for deep venous thrombosis in the visualized segments of both lower extremities. IMPRESSION: No sonographic evidence for deep venous thrombosis in the visualized segments of both lower extremities.
== END 2018-10-09 13:33 | disposition home or self-care (01) ==
LOC: ED 10:12
DX: M79.671 Pain in right foot (principal); M79.672 Pain in left foot; I12.0 Hypertensive chronic kidney disease with stage 5 chronic kidney disease or end stage renal disease; N18.6 End stage renal disease; Z99.2 Dependence on renal dialysis; E11.22 Type 2 diabetes mellitus with diabetic chronic kidney disease

== ENCOUNTER 2018-10-16 10:20 | Inpatient (IN) | payer MEDICARE, OTHER ==
[2018-10-16 10:20] VITALS: BMI 34.7
--- NOTE | 2018-10-16 11:28 | ED PDOC ---
Arrival/HPI - General Chief Complaint: Lower Extremity Problem/Injury Time Seen by Provider: 10/16/18 11:05 Historian: Patient - History of Present Illness Narrative History of Present Illness (Text): A 62 year old male, whose past medical history includes hypertension, Diabetes, ESRD (dialysis MWF), presents to the with complaint of 5 week duration bilateral foot pain and swelling. Patient was brought down to the emergency department after dialysis. The patient notes that the pain has been worsening over the past few weeks. He states that he has not taken any medication for his pain. Patient has an appointment with a head loader this month on the . He notes that recently he was seen by a head loader who was evaluating his for his wifes foot issue and was told that he might need to be admitted. The patient denies fevers, chills, headache, dizziness, chest pain, shortness of breath, dyspnea on exertion, cough, abdominal pain, nausea, vomiting, diarrhea, back pain, neck pain, urinary/bowel changes, or any other complaint. PMD: Dr. Bardales Time/Duration: Other (5 weeks) Symptom Onset: Sudden Symptom Course: Unchanged Activities at Onset: Rest, Light Context: Home Past Medical History - Provider Review Nursing Documentation Reviewed: Yes - Infectious Disease Hx of Infectious Diseases: None - Cardiac Hx Cardiac Disorders: Yes Hx Hypertension: Yes Hx Peripheral Edema: Yes Hx Peripheral Vascular Disease: Yes - Pulmonary Hx Respiratory Disorders: No - Neurological Hx Paralysis: No - HEENT Hx HEENT Disorder: Yes Hx Cataracts: Yes (RIGHT EYE) - Renal Date of Last Dialysis Treatment: 02/01/18 - Endocrine/Metabolic Hx Endocrine Disorders: Yes Hx Diabetes Mellitus Type 2: Yes - Hematological/Oncological Hx Blood Transfusions: No Hx Blood Transfusion Reaction: No - Integumentary Hx Dermatological Disorder: No - Musculoskeletal/Rheumatological Hx Musculoskeletal Disorders: No - Gastrointestinal Hx Gastrointestinal Disorders: No - Genitourinary/Gynecological Hx Genitourinary Disorders: No - Psychiatric Hx Physical Abuse: No Hx Substance Use: No - Surgical History Other/Comment: Av shunt on the left arm - Anesthesia Hx Anesthesia: Yes Hx Anesthesia Reactions: No Hx Malignant Hyperthermia: No - Suicidal Assessment Feels Threatened In Home Enviroment: No Family/Social History - Physician Review Nursing Documentation Reviewed: Yes Family/Social History: No Known Family HX Smoking Status: Never Smoked Hx Alcohol Use: No Hx Substance Use: No Hx Substance Use Treatment: No Allergies/Home Meds Allergies/Adverse Reactions: Allergies shellfish derived Allergy (Intermediate, Verified 10/16/18 10:28) DIZZINESS Home Medications: Home Meds Medication Instructions Recorded Confirmed rOPINIRole [Requip] 1 mg PO TID 05/20/17 10/16/18 Calcium Acetate [Phoslo] 4 tab PO TID 12/20/17 10/16/18 Furosemide [Lasix] 40 mg PO DAILY PRN 09/20/18 10/16/18 Pregabalin [Lyrica] 100 mg PO BID 09/20/18 10/16/18 traMADol [Ultram] 50 mg PO BID 09/20/18 10/16/18 Review of Systems - Physician Review All systems were reviewed & negative as marked: Yes - Review of Systems Constitutional: absent: Fevers Eyes: absent: Vision Changes ENT: absent: Hearing Changes Respiratory: absent: SOB, Cough Cardiovascular: absent: Chest Pain, MCCALLUM Gastrointestinal: absent: Abdominal Pain, Stool Changes, Diarrhea, Nausea, Vomiting Genitourinary Male: absent: Dysuria, Urinary Output Changes Musculoskeletal: Other (Bilateral foot pain). absent: Back Pain, Neck Pain Neurological: absent: Headache, Dizziness Physical Exam Vital Signs Reviewed: Yes Vital Signs Temp Pulse Resp BP Pulse Ox 10/16/18 10:20 98.4 F 99 H 17 134/68 100 Temperature: Afebrile Blood Pressure: Normal Pulse: Tachycardic Respiratory Rate: Normal Appearance: Positive for: Well-Appearing, Non-Toxic, Comfortable Pain Distress: None Mental Status: Positive for: Alert and Oriented X 3 - Systems Exam Head: Present: Atraumatic, Normocephalic Pupils: Present: PERRL Extroacular Muscles: Present: EOMI Conjunctiva: Present: Normal Mouth: Present: Moist Mucous Membranes Pharnyx: Present: Normal. No: ERYTHEMA, EXUDATE Nose (External): Present: Atraumatic Neck: Present: Normal Range of Motion Respiratory/Chest: Present: Clear to Auscultation, Good Air Exchange. No: Respiratory Distress, Accessory Muscle Use Cardiovascular: Present: Regular Rate and Rhythm, Normal S1, S2. No: Murmurs Abdomen: No: Tenderness, Distention, Peritoneal Signs Back: Present: Normal Inspection Upper Extremity: Present: Normal Inspection, Other (Left upper extremity AV fistula. Good bruit. Good thrill. ). No: Cyanosis, Edema Lower Extremity: Present: Normal Inspection, NORMAL PULSES, Normal ROM, Capillary Refill < 2 s, Other (negative romero. B/L Lesions to heels, abrasions, probing without bone palpation noted. No crepitus. ). No: Edema, CALF TENDERNESS, Anmol's Sign Neurological: Present: GCS=15, CN II-XII Intact, Speech Normal Skin: Present: Warm, Dry, Normal Color. No: Rashes Psychiatric: Present: Alert, Oriented x 3, Normal Insight, Normal Concentration Medical Decision Making ED Course and Treatment: 10/16/18 11:30 Impression: A 62 year old male presents to the emergency department with a complaint of 5 week duration bilateral foot pain. Was seen previously in this ED 1 week prior and had negative XR and Venous dopplers. Concern for continued pain. No indication of cellulitis on my exam, however was seen outpt by wifes head loader and reccomended to be eval. Given recurrent visit will seke labs, XR, blood cultures and Podiatry consult. No SOB of CP. No L/E edema on my exam. Good N/V status b/l LE. Plan: -- Left/ Right Foot X- Ray -- Blood Culture -- Labs -- Tylenol -- Reassess and disposition Prior Visits: Notes and results from previous visits were reviewed. Progress Notes: 10/16/18 12:07:4: Podiatry resident called. 10/16/18 12:45: labs largely unremarkable. pending XR and podiatry to see 10/16/18 14:19: Case discussed with Dr. Lewis who evaluated patient in the emergency department. Request consult from Dr. Law. 10/16/18 15:12 appreciate consult w/ Dr. Luna: no obs or admit at this time, to follow Dr. law order Appreciate consult W/ Dr. Law: SRI order changed 10/16/18 16:34 appreciate consult w/ Dr. Luna: talked to Dr. law: No vascular intervention at this time we are to rx pain and see if improved. pain meds ordered pt in nad 10/16/18 17:11 remains w/ pain appreciate consult w/ Dr. Luna: to admit to his service intractable pain / PVD pt in NAD No heparin at this time per vasc. - Lab Interpretations I have reviewed the lab results: Yes - RAD Interpretation Narrative RAD Interpretations (Text): PROCEDURE: Left Foot Radiographs. Dictator : Tony Dykes MD Report Date : 10/16/2018 14:13:00 IMPRESSION:Stable tuft fracture distal phalanx left foot 3rd digit. No additional fracture appreciable otherwise. Limited degenerative joint disease throughout the 2nd through 5th digits. PROCEDURE: Right Foot Radiographs. Dictator : Tony Dykes MDReport Date : 10/16/2018 14:15:31 IMPRESSION: Moderate diffuse soft tissue edema is identified but predominantly at the forefoot and midfoot once again, increased in the interval. No emphysematous soft tissue changes or retained radiodense foreign bodies are identified. No interval acute fracture appreciable. PROCEDURE: Lower extremity SRI exam Dictator : Robinson Keyes MD Report Date : 10/16/2018 18:09:51 IMPRESSION: 1. Very limited study due to artifact. 2. Severely abnormal right SRI. The left SRI is not obtainable. 3. Right iliac occlusive disease. 4. Bilateral tibial and small vessel disease. 5. If clinically indicated, an MRA runoff, CTA runoff, or conventional arteriogram can be obtained - Scribe Statement The provider has reviewed the documentation as recorded by the Scribe Hortencia Eden Provider Scribe Attestation: All medical record entries made by the Scribe were at my direction and person ally dictated by me. I have reviewed the chart and agree that the record accurately reflects my personal performance of the history, physical exam, medical decision making, and the department course for this patient. I have also personally directed, reviewed, and agree with the discharge instructions and disposition. Disposition/Present on Arrival - Present on Arrival Any Indicators Present on Arrival: No History of DVT/PE: No History of Uncontrolled Diabetes: Yes Urinary Catheter: No History of Decub. Ulcer: No History Surgical Site Infection Following: None - Disposition Have Diagnosis and Disposition been Completed?: Yes Diagnosis: Foot pain, bilateral, Intractable pain, PVD (peripheral vascular disease) Disposition Time: 15:13 Patient Problems: Current Active Problems Problem Status Onset Foot pain, bilateral Acute Intractable pain Acute PVD (peripheral vascular disease) Acute Condition: GOOD
[2018-10-16 12:10] LABS: BASO # 0.01 K/mm3 (0.0-2.0); BASO % 0.1 % (0.0-3.0); EOS # 0.2 (0.0-0.7); EOS % 2.5 % (1.5-5.0); GRAN # 4.7 (1.4-6.5); GRAN % 64.6 % (50.0-68.0); LYMPH # 1.5 (1.2-3.4); LYMPH % 20.2 % (22.0-35.0); MEAN CORPUSCULAR HEMOGLOBIN 33.7 pg (25.0-35.0); MEAN CORPUSCULAR HGB CONC 33.4 g/dl (31.0-37.0); MEAN PLATELET VOLUME 11.1 fl (7.0-11.0); MONO # 0.9 (0.1-0.6); MONO % 12.6 % (1.0-6.0); RBC 4.15 10^6/uL (3.5-6.1); RED CELL DISTRIBUTION WIDTH 15.4 % (11.5-14.5); WHITE BLOOD COUNT 7.3 10^3/uL (4.5-11.0)
[2018-10-16 12:24] LABS: ALB/GLOB RATIO 1.1 (1.1-1.8); ALBUMIN 4.3 g/dL (3.0-4.8); CALCIUM 9.1 mg/dL (8.4-10.5)
--- NOTE | 2018-10-16 13:11 | CP.PCM.CON ---
<DanielAyleen - Last Filed: 10/16/18 17:33> History of Present Illness - History of Present Illness History of Present Illness: Podiatry Consult Note for Dr. Lewis/Ximena: 62M patient, with PMHx of DM, HTN, PVD, ESRD, seen and evaluated in the ED for b/l foot pain. Patient states that he has been experiencing the pain for a while now. He states that his skin is starting to crack and cause pain to his heels on both feet. He denies any other pedal complaints at this time. He does not have a automatic presser currently, however his see's Dr. Bueno. Denies N/V/F/SOB. PMHx: DM, HTN, ESRD (dialysis MWF), PVD SHx: hernia repair ALL: Shellfish Review of Systems - Review of Systems Review of Systems: As per HPI Past Patient History - Infectious Disease Hx of Infectious Diseases: None - Past Medical History & Family History Past Medical History?: Yes - Past Social History Smoking Status: Never Smoked - CARDIAC Hx Cardiac Disorders: Yes Hx Hypertension: Yes Hx Peripheral Edema: Yes Hx Peripheral Vascular Disease: Yes - PULMONARY Hx Respiratory Disorders: No - NEUROLOGICAL Hx Paralysis: No - HEENT Hx HEENT Problems: Yes Hx Cataracts: Yes (RIGHT EYE) - RENAL Date of Last Dialysis Treatment: 02/01/18 - ENDOCRINE/METABOLIC Hx Endocrine Disorders: Yes Hx Diabetes Mellitus Type 2: Yes - HEMATOLOGICAL/ONCOLOGICAL Hx Blood Transfusions: No Hx Blood Transfusion Reaction: No - INTEGUMENTARY Hx Dermatological Problems: No - MUSCULOSKELETAL/RHEUMATOLOGICAL Hx Musculoskeletal Disorders: No - GASTROINTESTINAL Hx Gastrointestinal Disorders: No - GENITOURINARY/GYNECOLOGICAL Hx Genitourinary Disorders: No - PSYCHIATRIC Hx Physical Abuse: No Hx Substance Use: No - SURGICAL HISTORY Other/Comment: Av shunt on the left arm - ANESTHESIA Hx Anesthesia: Yes Hx Anesthesia Reactions: No Hx Malignant Hyperthermia: No Meds Allergies/Adverse Reactions: Allergies Allergy/AdvReac Type Severity Reaction Status Date / Time shellfish derived Allergy Intermediate DIZZINESS Verified 10/16/18 10:28 Physical Exam - Constitutional Appears: Well, No Acute Distress - Head Exam Head Exam: ATRAUMATIC, NORMOCEPHALIC - Extremities Exam Additional comments: B/L lower extremity exam: Vascular: DP/PT non palpable, CFT > 3 seconds to digits, TG warm to warm, +1 pitting edema to dorsal aspect of foot bilaterally Ortho: Tenderness to palpation of heels bilaterally, Neuro: Gross sensation intact, protective sensation diminished Derm: Fissures with dried serous fluid appreciated to heels bilaterally, no purulence, no malodor, no tunneling, no tracking. Mild diffuse edema appreciated to b/l heels. Erythema appreciated to R plantar digits with xerosis. - Psychiatric Exam Psychiatric exam: Normal Affect, Normal Mood Results - Vital Signs Recent Vital Signs: Last Vital Signs Temp 98.4 F 10/16/18 10:20 Pulse 99 H 10/16/18 10:20 Resp 17 10/16/18 10:20 BP 134/68 10/16/18 10:20 Pulse Ox 100 10/16/18 10:20 - Labs Result Diagrams: 10/16/18 11:55 10/16/18 11:55 Labs: Laboratory Results - last 24 hr 10/16/18 10/16/18 11:55 11:55 WBC 7.3 RBC 4.15 Hgb 14.0 Hct 41.9 L MCV 101.0 MCH 33.7 MCHC 33.4 RDW 15.4 H Plt Count 178 MPV 11.1 H Gran % 64.6 Lymph % (Auto) 20.[address] % (Auto) 12.6 H Eos % (Auto) 2.5 Baso % (Auto) 0.1 Gran # 4.70 Lymph # (Auto) 1.5 Lane # (Auto) 0.9 H Eos # (Auto) 0.2 Baso # (Auto) 0.01 Sodium 137 Potassium 4.8 Chloride 90 L Carbon Dioxide 34 H Anion Gap 19 BUN 29 H Creatinine 7.0 H Est GFR ( Amer) 10 Est GFR (Non-Af Amer) 8 Random Glucose 135 H Calcium 9.1 Total Bilirubin 0.8 AST 19 ALT 23 Alkaline Phosphatase 94 Total Protein 8.2 Albumin 4.3 Globulin 3.9 Albumin/Globulin Ratio 1.1 Assessment & Plan - Assessment and Plan (Free Text) Assessment: 62M patient, with PMHx of DM, HTN, PVD, ESRD, seen and evaluated in the ED for b/l foot pain. Plan: Patient seen and evaluated with Dr. Lewis Afebrile, WBC 7.3 B/L foot x-rays; moderate soft tissue edema, no emphysematous soft tissue changes or foreign bodies identified, no acute fracture appreciated Non-invasive vascular studies ordered; pending Vascular consult, Dr. Chiu, [facility] appreciated PT consult for darco heel relief shoe to be applied bilaterally Thank you for the consult - Date & Time Date: 10/16/18 Time: 13:10 <Tena Lewis - Last Filed: 10/23/18 14:34> Results - Vital Signs Recent Vital Signs: Last Vital Signs Temp 99.3 F 10/20/18 14:00 Pulse 107 H 10/20/18 14:00 Resp 18 10/20/18 14:00 BP 91/56 L 10/20/18 14:00 Pulse Ox 96 10/20/18 14:00 - Labs Result Diagrams: 10/19/18 07:00 10/19/18 11:23 Attending/Attestation - Attestation I have personally seen and examined this patient.: Yes I have fully participated in the care of the patient.: Yes I have reviewed all pertinent clinical information: Yes
--- NOTE | 2018-10-16 14:16 | RAD ---
Date of service: 10/16/2018 PROCEDURE: Left Foot Radiographs. HISTORY: L and R foot pain COMPARISON: Left foot radiographs 10/09/2018. FINDINGS: BONES: Prior tuft fracture remains nondisplaced at the distal phalanx left small digit. No interval acute fracture or destructive bony lesion identified. JOINTS: No subluxation or dislocation bilaterally. Mild degenerative joint space narrowing and cortical sclerosis appreciate the interphalangeal joints of the 2nd through 5th digits diffusely. SOFT TISSUES: Vascular calcification identified at the dorsal as well as plantar foot soft tissues as well surrounding the ankle. Mild plantar calcaneal spur. OTHER FINDINGS: None. IMPRESSION: Stable tuft fracture distal phalanx left foot 3rd digit. No additional fracture appreciable otherwise. Limited degenerative joint disease throughout the 2nd through 5th digits.
--- NOTE | 2018-10-16 14:19 | RAD ---
Date of service: 10/16/2018 PROCEDURE: Right Foot Radiographs. HISTORY: L foot pain COMPARISON: None. FINDINGS: BONES: No interval fracture or destructive bony lesion throughout the right foot appreciable. JOINTS: Degenerative joint disease seen throughout the interphalangeal joints diffusely once again. Mild hallux valgus deformity identified diffuse soft tissue edema is seen throughout the right foot but predominantly at the forefoot to midfoot dorsal and plantar soft tissues. Edema pattern has increased in the interval, now appearing moderate. Plantar calcaneal spur again evident as well as vascular calcifications in the dorsal and plantar soft tissues as well as surrounding the ankle. SOFT TISSUES: As above. OTHER FINDINGS: None. IMPRESSION: Moderate diffuse soft tissue edema is identified but predominantly at the forefoot and midfoot once again, increased in the interval. No emphysematous soft tissue changes or retained radiodense foreign bodies are identified. No interval acute fracture appreciable.
[2018-10-16] MEDS ORDERED: Oxycodone/Acetaminophen 10/325 mg Tab PO STA (16:32)
[2018-10-16] MEDS ORDERED: Morphine 4 mg/ml ISec IVP STA (17:57)
[2018-10-16] MEDS ORDERED: HYDROmorphone 0.5 mg/0.5 ml ISec SC PRN (18:01)
[2018-10-16] MEDS ORDERED: HYDROmorphone 1 mg/ml ISec SC PRN (18:07)
--- NOTE | 2018-10-16 18:13 | US ---
PROCEDURE: Lower extremity SRI exam HISTORY: Peripheral vascular disease bilateral ischemia and pain. End-stage renal disease. Diabetes. PHYSICIAN(S): Robinson Chiu MD. FINDINGS: The exam is very limited by artifact. The right resting ABIs severely abnormal, 0.44. The left resting SRI is not obtainable. The right high thigh PVR waveform appears to be blunted. Left high thigh waveform is pulsatile. The left low thigh and calf PVR waveforms are pulsatile. The left ankle and metatarsal waveforms are severely blunted. This is suggestive of left popliteal, trifurcation, and tibial occlusive disease. On the right, the calf PVR waveforms are moderately blunted. This is consistent with right SFA occlusive disease. In addition there is right tibial and small vessel disease IMPRESSION: 1. Very limited study due to artifact. 2. Severely abnormal right SRI. The left SRI is not obtainable. 3. Right iliac occlusive disease. 4. Bilateral tibial and small vessel disease. 5. If clinically indicated, an MRA runoff, CTA runoff, or conventional arteriogram can be obtained
--- NOTE | 2018-10-16 20:14 | CP.PCM.HP ---
History of Present Illness - History of Present Illness History of Present Illness: This is a 62 year old male with history of peripheral vascular disease, hypertension, end stage renal disease on dialysis, and diabetes who presented to the [facility] Emergency Room with severe pain in both of his feet. There is erythema of both feet and cracked skin with open wounds on the left 4th and 5th toe and right big toe. Patient also has swelling of both legs. He says that the pain is so bad, he is unable to walk. Present on Admission - Present on Admission Any Indicators Present on Admission: No History of DVT/PE: No History of Uncontrolled Diabetes: No Urinary Catheter: No Decubitus Ulcer Present: No Review of Systems - Constitutional Constitutional: absent: Chills, Fever, Weight Loss - Cardiovascular Cardiovascular: Edema. absent: Chest Pain, Diaphoresis, Dyspnea - Respiratory Respiratory: absent: Cough, Dyspnea, Hemoptysis - Gastrointestinal Gastrointestinal: absent: Abdominal Pain, Nausea, Vomiting Past Patient History - Infectious Disease Hx of Infectious Diseases: None - Past Medical History & Family History Past Medical History?: Yes - Past Social History Smoking Status: Never Smoked - CARDIAC Hx Cardiac Disorders: Yes Hx Hypertension: Yes Hx Peripheral Edema: Yes Hx Peripheral Vascular Disease: Yes - PULMONARY Hx Respiratory Disorders: No - NEUROLOGICAL Hx Paralysis: No - HEENT Hx HEENT Problems: Yes Hx Cataracts: Yes (RIGHT EYE) - RENAL Date of Last Dialysis Treatment: 02/01/18 - ENDOCRINE/METABOLIC Hx Endocrine Disorders: Yes Hx Diabetes Mellitus Type 2: Yes - HEMATOLOGICAL/ONCOLOGICAL Hx Blood Transfusions: No Hx Blood Transfusion Reaction: No - INTEGUMENTARY Hx Dermatological Problems: No - MUSCULOSKELETAL/RHEUMATOLOGICAL Hx Musculoskeletal Disorders: No - GASTROINTESTINAL Hx Gastrointestinal Disorders: No - GENITOURINARY/GYNECOLOGICAL Hx Genitourinary Disorders: No - PSYCHIATRIC Hx Physical Abuse: No Hx Substance Use: No - SURGICAL HISTORY Other/Comment: Av shunt on the left arm - ANESTHESIA Hx Anesthesia: Yes Hx Anesthesia Reactions: No Hx Malignant Hyperthermia: No Meds Home Medications: Home Medication List Medication Instructions Recorded Confirmed Type RX: Atenolol [Tenormin] 25 mg PO DAILY tab 10/20/18 Rx RX: Calcium Acetate [Phoslo] 2,668 mg PO WM tab 10/20/18 Rx RX: Cinacalcet [Sensipar] 30 mg PO DAILY tab 10/20/18 Rx RX: Furosemide [Lasix] 40 mg IVP DAILY vial 10/20/18 Rx RX: HYDROmorphone [Dilaudid] 2 mg IVP Q4H PRN ml 10/20/18 Rx RX: Ondansetron [Zofran Inj] 4 mg IVP ONCE PRN vial 10/20/18 Rx RX: Polyethylene Glycol/Polyvinyl 0 ml OS HS bottle 10/20/18 Rx [Artificial Tears] Allergies/Adverse Reactions: Allergies Allergy/AdvReac Type Severity Reaction Status Date / Time shellfish derived Allergy Intermediate DIZZINESS Verified 10/16/18 10:28 Physical Exam - Constitutional Appears: No Acute Distress - Head Exam Head Exam: ATRAUMATIC, NORMOCEPHALIC - Respiratory Exam Respiratory Exam: Clear to Auscultation Bilateral, NORMAL BREATHING PATTERN - Cardiovascular Exam Cardiovascular Exam: REGULAR RHYTHM, +S1, +S2 - Extremities Exam Extremities exam: Positive for: pedal edema Additional comments: erthyema bilateral feet, +left 5th toe and right big toe ulceration, BL heel ulcerations - Neurological Exam Neurological exam: Alert, Oriented x3 Results - Vital Signs Recent Vital Signs: Last Vital Signs Temp 98.4 F 10/16/18 10:20 Pulse 94 H 10/16/18 19:54 Resp 18 10/16/18 19:54 BP 134/76 10/16/18 19:54 Pulse Ox 95 10/16/18 19:54 - Labs Result Diagrams: 10/19/18 07:00 10/19/18 11:23 Labs: Laboratory Results - last 24 hr 10/16/18 10/16/18 11:55 11:55 WBC 7.3 RBC 4.15 Hgb 14.0 Hct 41.9 L MCV 101.0 MCH 33.7 MCHC 33.4 RDW 15.4 H Plt Count 178 MPV 11.1 H Gran % 64.6 Lymph % (Auto) 20.2 L [place] % (Auto) 12.6 H Eos % (Auto) 2.5 Baso % (Auto) 0.1 Gran # 4.70 Lymph # (Auto) 1.5 [place] # (Auto) 0.9 H Eos # (Auto) 0.2 Baso # (Auto) 0.01 Sodium 137 Potassium 4.8 Chloride 90 L Carbon Dioxide 34 H Anion Gap 19 BUN 29 H Creatinine 7.0 H Est GFR ( Amer) 10 Est GFR (Non-Af Amer) 8 Random Glucose 135 H Calcium 9.1 Total Bilirubin 0.8 AST 19 ALT 23 Alkaline Phosphatase 94 Total Protein 8.2 Albumin 4.3 Globulin 3.9 Albumin/Globulin Ratio 1.1 Assessment & Plan - Assessment and Plan (Free Text) Assessment: Peripheral Vascular disease with cellulitis bilateral feet and wounds of left 4th and 5th digit and right big toe. ESRD on HD DMII HTN Chronic diastolic heart failure Plan: Infectious disease consult for cellulitis and wounds of feet with possible gangrene. Patient will also need wound care. Dr. Robinson Chiu has been consulted for the peripheral vascular disease. Patient has had angioplasty in the past. Patient complaining of severe pain with no relief from Tramadol or Percocet. Will give Dilaudid as needed for pain. Patient also with swelling of both feet. Lasix 40 mg IV daily is ordered. Patient is a regular dialysis patient. Will consult Dr. Hopson, his provider relations rep. Patient's blood sugar has been controlled with diet. Patient's blood pressure has also been controlled since he has been on dialysis.
[2018-10-16] MEDS: HYDROmorphone 1 mg/ml ISec SC PRN (22:45)
[2018-10-16] MEDS ORDERED: Influenza Vaccine 60 mcg/0.5 mL SYR (4YR UP) IM ONE (23:46)
[2018-10-16] MEDS ORDERED: Pneumococcal 23-Valent Vaccine IM ONE (23:46)
[2018-10-17] MEDS: HYDROmorphone 1 mg/ml ISec SC PRN (05:05)
[2018-10-17 07:29] LABS: BASO # 0.01 K/mm3 (0.0-2.0); BASO % 0.1 % (0.0-3.0); EOS # 0.2 (0.0-0.7); EOS % 2.6 % (1.5-5.0); GRAN # 4.03 (1.4-6.5); GRAN % 56.1 % (50.0-68.0); HEMOGLOBIN 14.1 g/dL (14.0-18.0); LYMPH # 2.2 (1.2-3.4); LYMPH % 30.5 % (22.0-35.0); MEAN CELL VOLUME 102.2 fl (80.0-105.0); MEAN CORPUSCULAR HEMOGLOBIN 33.8 pg (25.0-35.0); MEAN CORPUSCULAR HGB CONC 33.1 g/dl (31.0-37.0); MONO # 0.8 (0.1-0.6); MONO % 10.7 % (1.0-6.0); RBC 4.17 10^6/uL (3.5-6.1); RED CELL DISTRIBUTION WIDTH 15.5 % (11.5-14.5); WHITE BLOOD COUNT 7.2 10^3/uL (4.5-11.0)
--- NOTE | 2018-10-17 07:49 | CP.PCM.CON ---
<Leona Garcia - Last Filed: 10/17/18 12:20> History of Present Illness - History of Present Illness History of Present Illness: PGY-[address] Jack ID consult: wounds b/l feet, heels, cellulitis Mr Wheeler, 62M, with PMHx Diabetes, HTN, peripheral vascular disease, end stage renal disease on dialysis c/o severe pain in both feet that prevented him from bearing weight. There is cracked skin with open wounds on both heels and the left 4th and 5th toe and right big toe, associated with swelling and erythema. Pt experienced constant 10/10 pain that felt as if the legs "want to exploid." P t does not have podiatry. On admission, pt is afebrile. WBC 7.3. Ultrasound arterial doppler showed severe RLE PAD and b/l tibial and small vessel disease. ROS: (+) numbness/pain b/l feet Denies fever/chills, SPRINGER, SOB, CP, abdominal pain/N/V/D/C PMHx: DM2 (non-insulin), HTN, ESRD (dialysis MWF), PVD R eye catarac SHx: hernia repair Malfunction LUE AV fistula anatomosis angioplasty 09/26/18 FH: DM SH: Denies smoke, drug, etoh ALL: Shellfish Med: See DEC PMD: Dr Boone Past Patient History - Infectious Disease Hx of Infectious Diseases: None - Past Medical History & Family History Past Medical History?: Yes - Past Social History Smoking Status: Never Smoked - CARDIAC Hx Cardiac Disorders: Yes Hx Hypertension: Yes Hx Peripheral Edema: Yes Hx Peripheral Vascular Disease: Yes - PULMONARY Hx Respiratory Disorders: No - NEUROLOGICAL Hx Neurological Disorder: No - HEENT Hx HEENT Problems: Yes Hx Cataracts: Yes (RIGHT EYE) - RENAL Hx Chronic Kidney Disease: Yes Hx Renal Failure: Yes - ENDOCRINE/METABOLIC Hx Endocrine Disorders: Yes Hx Diabetes Mellitus Type 2: Yes - HEMATOLOGICAL/ONCOLOGICAL Hx Blood Disorders: No - INTEGUMENTARY Hx Dermatological Problems: No - MUSCULOSKELETAL/RHEUMATOLOGICAL Hx Falls: No - GASTROINTESTINAL Hx Gastrointestinal Disorders: No - GENITOURINARY/GYNECOLOGICAL Hx Genitourinary Disorders: No - PSYCHIATRIC Hx Physical Abuse: No - SURGICAL HISTORY Other/Comment: Av shunt on the left arm - ANESTHESIA Hx Anesthesia: Yes Hx Anesthesia Reactions: No Hx Malignant Hyperthermia: No Meds Allergies/Adverse Reactions: Allergies Allergy/AdvReac Type Severity Reaction Status Date / Time shellfish derived Allergy Intermediate DIZZINESS Verified 10/16/18 10:28 - Medications Medications: Current Medications Furosemide (Lasix) 40 mg IVP DAILY [facility] Hydromorphone HCl (Dilaudid) 1 mg SC Q4H PRN PRN Reason: Pain, severe (8-10) Last Admin: 10/17/18 05:05 Dose: 1 mg Pregabalin (Lyrica) 100 mg PO BID YON[facility] Ropinirole HCl (Requip) 1 mg PO TID YONIS Last Admin: 10/16/18 18:44 Dose: 1 mg Physical Exam - Constitutional Appears: No Acute Distress - Head Exam Head Exam: ATRAUMATIC, NORMAL INSPECTION, NORMOCEPHALIC - Eye Exam Eye Exam: EOMI, Normal appearance, PERRL Pupil Exam: NORMAL ACCOMODATION - ENT Exam ENT Exam: Mucous Membranes Moist - Neck Exam Additional comments: supple - Respiratory Exam Respiratory Exam: Clear to Auscultation Bilateral, NORMAL BREATHING PATTERN. absent: Rales, Rhonchi, Wheezes - Cardiovascular Exam Cardiovascular Exam: REGULAR RHYTHM, +S1, +S2. absent: Systolic Murmur - GI/Abdominal Exam GI & Abdominal Exam: Normal Bowel Sounds, Soft. absent: Distended, Firm, Gu arding, Rigid, Tenderness - Extremities Exam Extremities exam: Positive for: pedal edema. Negative for: calf tenderness Additional comments: R 1st toe, L 5th toe, b/l heel dry gangrene Erythema, Extreme tenderness, non-pitting 2+ edema whole foot - Back Exam Back exam: absent: CVA tenderness (L), CVA tenderness (R) - Neurological Exam Neurological exam: Alert, CN II-XII Intact, Oriented x3 - Psychiatric Exam Psychiatric exam: Normal Affect, Normal Mood - Skin Skin Exam: Dry, Warm Results - Vital Signs Recent Vital Signs: Last Vital Signs Temp 98.2 F 10/16/18 20:30 Pulse 94 H 10/16/18 20:30 Resp 20 10/16/18 23:46 BP 134/76 10/16/18 20:30 Pulse Ox 95 10/16/18 20:30 - Labs Result Diagrams: 10/17/18 07:00 10/17/18 07:00 Labs: Laboratory Results - last 24 hr 10/16/18 10/16/1818 11:55 11:55 07:00 WBC 7.3 7.2 RBC 4.15 4.17 Hgb 14.0 14.1 Hct 41.9 L 42.6 MCV 101.0 102.2 MCH 33.7 33.8 MCHC 33.4 33.1 RDW 15.4 H 15.5 H Plt Count 178 202 MPV 11.1 H 11.0 Gran % 64.6 56.1 Lymph % (Auto) 20.2 L 30.5 [place] % (Auto) 12.6 H 10.7 H Eos % (Auto) 2.5 2.6 Baso % (Auto) 0.1 0.1 Gran # 4.70 4.03 Lymph # (Auto) 1.5 2.2 [place] # (Auto) 0.9 H 0.8 H Eos # (Auto) 0.2 0.2 Baso # (Auto) 0.01 0.01 Sodium 137 Potassium 4.8 Chloride 90 L Carbon Dioxide 34 H Anion Gap 19 BUN 29 H Creatinine 7.0 H Est GFR ( Amer) 10 Est GFR (Non-Af Amer) 8 Random Glucose 135 H Calcium 9.1 Total Bilirubin 0.8 AST 19 ALT 23 Alkaline Phosphatase 94 Total Protein 8.2 Albumin 4.3 Globulin 3.9 Albumin/Globulin Ratio 1.1 10/17/18 07:00 WBC RBC Hgb Hct MCV MCH MCHC RDW Plt Count MPV Gran % Lymph % (Auto) [place] % (Auto) Eos % (Auto) Baso % (Auto) Gran # Lymph # (Auto) [place] # (Auto) Eos # (Auto) Baso # (Auto) Sodium Potassium 4.9 Chloride Carbon Dioxide Anion Gap BUN Creatinine Est GFR ( Amer) Est GFR (Non-Af Amer) Random Glucose Calcium Total Bilirubin AST ALT Alkaline Phosphatase Total Protein Albumin Globulin Albumin/Globulin Ratio Assessment & Plan - Assessment and Plan (Free Text) Plan: R 1st toe, L 5th toe, b/l heel dry gangrene with cellulitis complicated by poor circulation due to DM, severe PAD. R/O osteomyelitis Erythema, Extreme tenderness, non-pitting 2+ edema whole foot Severe RLE peripheral artery disease. R SRI 0.44 L SRI not obtainable R iliac occlusive disease (R high thigh PVR waveform blunted) bilateral tibial and small vessel disease b/l foot x-ray shows soft tissue edema, no fracture. Cefepime [id number] for ?pseudomonas loading dose vancomycin today Get random vanc level tomorrow to determine if need more vancomycin Will check with podiatry re: whether to get MRI foot b/l. Will check ESR, CRP to r/o osteomyelitis Follow on blood culture Vascular consult for severe PAD; Per IR, may consider MRA runoff, CTA runoff, or conventional arteriogram Podiatry on board PT consult for darco heel relief shoes b/l pain control per primary s/r/d/w Marcie <Tae Jack S - Last Filed: 10/17/18 16:59> Meds - Medications Medications: Current Medications Calcium Acetate (Phoslo) 2,668 mg PO WM YONIS Furosemide (Lasix) 40 mg IVP DAILY YONIS Last Admin: 10/17/18 10:26 Dose: 40 mg Hydromorphone HCl (Dilaudid) 2 mg IVP Q4H PRN PRN Reason: Pain, severe (8-10) Last Admin: 10/17/18 14:38 Dose: 2 mg Cefepime HCl (Maxipime 1gm) 1 gm in 100 mls @ 100 mls/hr IVPB Q24H YONIS; Protocol Last Admin: 10/17/18 13:47 Dose: 100 mls/hr Pregabalin (Lyrica) 100 mg PO BID YONIS Last Admin: 10/17/18 10:25 Dose: 100 mg Ropinirole HCl (Requip) 1 mg PO TID YONIS Last Admin: 10/17/18 13:52 Dose: 1 mg Results - Vital Signs Recent Vital Signs: Last Vital Signs Temp 98.5 F 10/17/18 15:00 Pulse 92 H 10/17/18 15:00 Resp 20 10/17/18 15:00 BP 162/87 H 10/17/18 15:00 Pulse Ox 100 10/17/18 15:00 - Labs Result Diagrams: 10/17/18 07:00 10/17/18 07:00 Labs: Laboratory Results - last 24 hr 10/17/18 10/17/18 10/17/18 07:00 07:00 08:00 WBC 7.2 RBC 4.17 Hgb 14.1 Hct 42.6 MCV 102.2 MCH 33.8 MCHC 33.1 RDW 15.5 H Plt Count 202 MPV 11.0 Gran % 56.1 Lymph % (Auto) 30.5 [place] % (Auto) 10.7 H Eos % (Auto) 2.6 Baso % (Auto) 0.1 Gran # 4.03 Lymph # (Auto) 2.2 [place] # (Auto) 0.8 H Eos # (Auto) 0.2 Baso # (Auto) 0.01 ESR 76 H Sodium 137 Potassium 4.9 Chloride 91 L Carbon Dioxide 29 Anion Gap 22 H BUN 44 H Creatinine 9.4 H* D Est GFR ( Amer) 7 Est GFR (Non-Af Amer) 6 Random Glucose 91 Calcium 8.2 L C-Reactive Protein 10/17/18 08:00 WBC RBC Hgb Hct MCV MCH MCHC RDW Plt Count MPV Gran % Lymph % (Auto) [place] % (Auto) Eos % (Auto) Baso % (Auto) Gran # Lymph # (Auto) [place] # (Auto) Eos # (Auto) Baso # (Auto) ESR Sodium Potassium Chloride Carbon Dioxide Anion Gap BUN Creatinine Est GFR ( Amer) Est GFR (Non-Af Amer) Random Glucose Calcium C-Reactive Protein 62.40 H Assessment & Plan - Assessment and Plan (Free Text) Plan: Infectious diseases Attending Physician Attestation Patient seen and examined, discussed with medical office specialist. I have reviewed the patient's history of present illness, past medical, social, personal and family histories, pertinent physical exam findings, course so far in this hospital admission, pertinent laboratory and imaging results. I agree with the above findings, assessment and plan.
[2018-10-17 08:13] LABS: CALCIUM 8.2 mg/dL (8.4-10.5)
[2018-10-17] MEDS ORDERED: HYDROmorphone 2 mg/ml ISec SC PRN (08:21)
--- NOTE | 2018-10-17 08:27 | CP.PCM.PN ---
Subjective - Date & Time of Evaluation Date of Evaluation: 10/17/18 Time of Evaluation: 07:45 - Subjective Subjective: Patient is seen this morning. He continues to complain of pain in both of his feet. He says the pain medicine helps for a little while but then the pain comes back again. Objective - Vital Signs/Intake and Output Vital Signs (last 24 hours): Temp Pulse Resp BP Pulse Ox 98.2 F 94 H 20 134/76 95 10/16/18 20:30 10/16/18 20:30 10/16/18 23:46 10/16/18 20:30 10/16/18 20:30 Intake and Output: 10/17/18 10/17/18 06:59 18:59 Intake Total 240 Balance 240 - Medications Medications: Current Medications Furosemide (Lasix) 40 mg IVP DAILY [facility] Hydromorphone HCl (Dilaudid) 2 mg SC Q4H PRN PRN Reason: Pain, severe (8-10) Pregabalin (Lyrica) 100 mg PO BID YONIS Ropinirole HCl (Requip) 1 mg PO TID [facility] Last Admin: 10/16/18 18:44 Dose: 1 mg - Labs Labs: 10/17/18 07:00 10/17/18 07:00 - Constitutional Appears: No Acute Distress - Head Exam Head Exam: ATRAUMATIC, NORMOCEPHALIC - Respiratory Exam Respiratory Exam: Clear to Ausculation Bilateral, NORMAL BREATHING PATTERN - Cardiovascular Exam Cardiovascular Exam: REGULAR RHYTHM, +S1, +S2 - GI/Abdominal Exam GI & Abdominal Exam: Soft, Normal Bowel Sounds. absent: Tenderness - Extremities Exam Extremities Exam: Pedal Edema Additional comments: L 5th toe and R big toe ulcerations, bilateral heel wounds - Neurological Exam Neurological Exam: Alert, Awake, CN II-XII Intact, Oriented x3 Assessment and Plan - Assessment and Plan (Free Text) Assessment: Severe PVD Cellulitis BL feet with wounds DMII ESRD on HD Chronic diastolic heart failure Plan: Patient continues to complain of pain. Will increase Dilaudid to 2 mg SC every 4 hours as needed for pain. Will consult Dr. Olvera for pain management. Patient to be seen by Dr. Robinson Chiu regarding severe peripheral vascular disease. Consult podiatry for wound care. continue IV Lasix for pedal edema. Patient will continue dialysis as usual as per nephrology.
--- NOTE | 2018-10-17 12:19 | CP.PCM.APN ---
Subjective - Date & Time of Evaluation Date of Evaluation: 10/17/18 Time of Evaluation: 08:45 - Subjective Subjective: Pt seen and examined at bedside. C/O deysi ft pain, worse on ambulation and some tingling sensation on deysi legs on/off. In no acute distress. Objective - Vital Signs/Intake and Output Vital Signs (last 24 hours): Temp Pulse Resp BP Pulse Ox 98.2 F 84 20 134/70 97 10/17/18 07:00 10/17/18 07:00 10/17/18 07:00 10/17/18 10:26 10/17/18 07:00 Intake and Output: 10/17/18 10/17/18 06:59 18:59 Intake Total 240 Balance 240 - Medications Medications: Current Medications Furosemide (Lasix) 40 mg IVP DAILY [facility] Last Admin: 10/17/18 10:26 Dose: 40 mg Hydromorphone HCl (Dilaudid) 2 mg SC Q4H PRN PRN Reason: Pain, severe (8-10) Pregabalin (Lyrica) 100 mg PO BID [facility] Last Admin: 10/17/18 10:25 Dose: 100 mg Ropinirole HCl (Requip) 1 mg PO TID [facility] Last Admin: 10/17/18 10:25 Dose: 1 mg - Labs Labs: 10/17/18 07:00 10/17/18 07:00 - Constitutional Appears: Well, No Acute Distress - Head Exam Head Exam: ATRAUMATIC - Eye Exam Eye Exam: Normal appearance - ENT Exam ENT Exam: Mucous Membranes Moist - Neck Exam Neck Exam: Full ROM - Respiratory Exam Respiratory Exam: Clear to Ausculation Bilateral, NORMAL BREATHING PATTERN - Cardiovascular Exam Cardiovascular Exam: REGULAR RHYTHM, +S1, +S2 - GI/Abdominal Exam GI & Abdominal Exam: Soft, Normal Bowel Sounds - Rectal Exam Rectal Exam: Deferred - Extremities Exam Additional comments: LUE with AV fistula, +bruit and thrill. +swelling to b/l ft. deysi pedal pulses palpable but faint. - Neurological Exam Neurological Exam: Alert, Awake, Oriented x3 - Skin Additional comments: dry, cracked skin on deysi heel Assessment and Plan - Assessment and Plan (Free Text) Assessment: Pt is a 62 y.o. male with pmhx of peripheral vascular disease, hypertension, end stage renal disease on dialysis, and diabetes who presented in ED 2/2 deysi ft pain and swelling. He had a venous doppler on deysi lower ext on 10/09/18 and was negative. Radiology Results Foot X-Ray 10/16/18 11:27 IMPRESSION: Stable tuft fracture distal phalanx left foot 3rd digit. No additional fracture appreciable otherwise. Limited degenerative joint disease throughout the 2nd through 5th digits. Foot X-Ray 10/16/18 11:27 IMPRESSION: Moderate diffuse soft tissue edema is identified but predominantly at the forefoot and midfoot once again, increased in the interval. No emphysematous soft tissue changes or retained radiodense foreign bodies are identified. No interval acute fracture appreciable. Extremity Ultrasound 10/16/18 14:10 IMPRESSION: 1. Very limited study due to artifact. 2. Severely abnormal right SRI. The left SRI is not obtainable. 3. Right iliac occlusive disease. 4. Bilateral tibial and small vessel disease. 5. If clinically indicated, an MRA runoff, CTA runoff, or conventional arteriogram can be obtained Plan: Pain management Physical therapy Podiatry, Pain management, Renal, ID and Vascular on consult On IV lasix On Cefepime per ID recs Meds per MAR Will continue to follow
[2018-10-17] MEDS ORDERED: Vancomycin 2.5 GM in Sodium Chloride 0.9% 500 ML IVPB ONE (12:25)
--- NOTE | 2018-10-17 13:03 | CP.PCM.PN ---
<DanielAyleen - Last Filed: 10/17/18 15:53> Subjective - Date & Time of Evaluation Date of Evaluation: 10/17/18 Time of Evaluation: 13:03 - Subjective Subjective: Podiatry Consult Note for Dr. Bueno: 62M patient seen and evaluated for bilateral foot pain and PAD. Patient states that he is still in pain, cramping in nature to his bilateral lower extremities. He denies any other pedal complaints at this time. Denies N/V/F/SOB/CP. Objective - Vital Signs/Intake and Output Vital Signs (last 24 hours): Temp Pulse Resp BP Pulse Ox 98.2 F 84 20 134/70 97 10/17/18 07:00 10/17/18 07:00 10/17/18 07:00 10/17/18 10:26 10/17/18 07:00 Intake and Output: 10/17/18 10/17/18 06:59 18:59 Intake Total 240 Balance 240 - Medications Medications: Current Medications Furosemide (Lasix) 40 mg IVP DAILY [facility] Last Admin: 10/17/18 10:26 Dose: 40 mg Hydromorphone HCl (Dilaudid) 2 mg SC Q4H PRN PRN Reason: Pain, severe (8-10) Cefepime HCl (Maxipime 1gm) 1 gm in 100 mls @ 100 mls/hr IVPB Q24H [facility]; Protocol Vancomycin HCl 2.5 gm/ Sodium (Chloride) 500 mls @ 170 mls/hr IVPB ONCE ONE; Protocol Stop: 10/17/18 15:21 Pregabalin (Lyrica) 100 mg PO BID [facility] Last Admin: 10/17/18 10:25 Dose: 100 mg Ropinirole HCl (Requip) 1 mg PO TID [facility] Last Admin: 10/17/18 10:25 Dose: 1 mg - Labs Labs: 10/17/18 07:00 10/17/18 07:00 - Constitutional Appears: Well, Non-toxic, No Acute Distress - Head Exam Head Exam: ATRAUMATIC, NORMOCEPHALIC - Extremities Exam Additional comments: B/L lower extremity exam: Vascular: DP/PT non palpable, CFT > 3 seconds to digits, TG warm to warm, +1 pitting edema to dorsal aspect of foot bilaterally Ortho: Tenderness to palpation of heels bilaterally, Neuro: Gross sensation intact, protective sensation diminished Derm: Fissures with dried serous fluid appreciated to heels bilaterally, no purulence, no malodor, no tunneling, no tracking. Mild diffuse edema appreciated to b/l heels. Erythema appreciated to R plantar digits with xerosis. No open lesions, no clinical signs of infection. Erythema to digits. Distal tip of R hallux showing discoloration consistent with ischemic changes - Neurological Exam Neurological Exam: Alert, Awake, Oriented x3 - Psychiatric Exam Psychiatric exam: Normal Affect, Normal Mood Assessment and Plan - Assessment and Plan (Free Text) Assessment: 62M patient seen and evaluated for bilateral foot pain and PAD. Plan: Patient seen and evaluated with Dr. Bueno WBC 7.2, afebrile B/L foot x-rays; moderate soft tissue edema, no emphysematous soft tissue changes or foreign bodies identified, no acute fracture appreciated Local wound care: xeroform and DSD applied to b/l heels L/E SRI/PVR: severely abnormal R SRI, L SRI not obtainable, R illiac occlusive disease, b/l tibial and small vessel disease Vascular consult, Dr. Chiu, reccs appreciated ID on board, reccs appreciate; Cefepime and vancomycin Darco shoe ordered for patient Will continue to follow <Walter Bueno - Last Filed: 10/17/18 17:03> Objective - Vital Signs/Intake and Output Vital Signs (last 24 hours): Temp Pulse Resp BP Pulse Ox 98.5 F 92 H 20 162/87 H 100 10/17/18 15:00 10/17/18 15:00 10/17/18 15:00 10/17/18 15:00 10/17/18 15:00 Intake and Output: 10/17/18 10/17/18 06:59 18:59 Intake Total 240 Balance 240 - Medications Medications: Current Medications Calcium Acetate (Phoslo) 2,668 mg PO WM [facility] Furosemide (Lasix) 40 mg IVP DAILY [facility] Last Admin: 10/17/18 10:26 Dose: 40 mg Hydromorphone HCl (Dilaudid) 2 mg IVP Q4H PRN PRN Reason: Pain, severe (8-10) Last Admin: 10/17/18 14:38 Dose: 2 mg Cefepime HCl (Maxipime 1gm) 1 gm in 100 mls @ 100 mls/hr IVPB Q24H [facility]; Protocol Last Admin: 10/17/18 13:47 Dose: 100 mls/hr Pregabalin (Lyrica) 100 mg PO BID [facility] Last Admin: 10/17/18 10:25 Dose: 100 mg Ropinirole HCl (Requip) 1 mg PO TID [facility] Last Admin: 10/17/18 13:52 Dose: 1 mg - Labs Labs: 10/17/18 07:00 10/17/18 07:00 Attending/Attestation - Attestation I have personally seen and examined this patient.: Yes I have fully participated in the care of the patient.: Yes I have reviewed all pertinent clinical information, including history, physical exam and plan: Yes
[2018-10-17] MEDS: Cefepime 1gm in NS 100ml 1 GM/100 ML BAG IVPB SCH (13:47)
[2018-10-17] MEDS: HYDROmorphone 2 mg/ml ISec IVP PRN ×2 (14:38→20:10)
--- NOTE | 2018-10-17 19:56 | CON ---
DATE OF CONSULTATION: 10/17/2018 REFERRING PHYSICIAN: Cesilia Boone MD REASON FOR CONSULTATION: To provide dialysis services for a patient known to me from outpatient dialysis, who was admitted with bilateral lower extremity cellulitis. HISTORY OF PRESENT ILLNESS: The patient is a pleasant 62-year-old white male with a history of end-stage renal disease, on chronic maintenance hemodialysis Tuesday, Tuesday, Tuesday at [facility], history of NIDDM, history of peripheral vascular disease, history of diabetic neuropathy and diabetic nephropathy, history of hypertension, history of secondary hyperparathyroidism secondary to chronic kidney disease and history of anemia secondary to chronic kidney disease. The patient presented to the emergency room with increasing pain in the feet of his lower extremities with redness and swelling. He was noted to have a wound over his right big toe and wounds over the left fourth and fifth toe. The patient has known severe peripheral vascular disease. The patient is currently receiving IV antibiotic therapy. He is scheduled for dialysis on 10/18/2018. PAST MEDICAL HISTORY: Significant for that of end-stage renal disease, on chronic maintenance hemodialysis, NIDDM with diabetic nephropathy, neuropathy, vasculopathy, hypertension, secondary hyperparathyroidism, on binder therapy, and anemia secondary to chronic kidney disease. The patient has a working left upper extremity AV fistula. FAMILY HISTORY: Positive for diabetes, chronic kidney disease and hypertension. SOCIAL HISTORY: No history of cigarette smoking. No history of alcohol use. MEDICATIONS AT HOME: Ultram, Requip, Lyrica, Lasix p.r.n., and PhosLo. CURRENT MEDICATIONS IN HOSPITAL: Dilaudid, Lasix, Lyrica, Maxipime, Requip, vancomycin. ALLERGIES: THE PATIENT IS ALLERGIC TO SHELLFISH, DERIVED. REVIEW OF SYSTEMS: Ten plus systems reviewed with the patient and all negative except for what is noted above. GENERAL: The patient states appetite and weight have been stable. ENT: Denies any hearing or visual problems. PULMONARY: No shortness of breath. No history of asthma, COPD, bronchitis or recent pneumonia. CARDIAC: No history of ASHD known to the patient. GI: No nausea or vomiting. No diarrhea, no constipation, no abdominal pain. : History of end-stage renal disease. The patient still makes small amounts of urine, hence he remains on Lasix therapy. ENDOCRINE: Positive for NIDDM with complications. History of secondary hyperparathyroidism. MUSCULOSKELETAL: Pain in his feet secondary to nonhealing wounds and cellulitis. NEURO: History of diabetic neuropathy. HEME/ONC: History of anemia secondary to chronic kidney disease. PSYCHIATRIC: Negative. PHYSICAL EXAMINATION: GENERAL: The patient is currently seen on 5R. His daughter is in the room. He is sitting up in bed. He is complaining of pain in his feet. VITAL SIGNS: Blood pressure 162/87, pulse of 92, temperature 98.5, respiratory rate 20 with an oxygen saturation of 100. HEENT: Normocephalic, atraumatic. Conjunctivae are pink. Sclerae are nonicteric. NECK: Supple. No neck vein distention. No thyromegaly. No lymphadenopathy. No bruits. CHEST: Clear to auscultation and percussion. No rales, rhonchi or wheezing. CARDIOVASCULAR: Regular rate and rhythm without murmurs, rubs or gallops. ABDOMEN: Soft. Bowel sounds normal. No rebound, guarding or masses. BACK: No CVAT. No spinal tenderness. EXTREMITIES: No palpable pulses of the lower extremities. Positive dressings on his feet bilaterally. The dressings were not removed to examine the wounds. Positive mild erythema and puffiness seen between the dressings. NEURO: Alert, oriented. Positive lower extremity peripheral diabetic neuropathy. No gross focal motor deficits noted. LABORATORY DATA: CBC: White blood cell count today 7.2, hemoglobin 14.1 with a platelet count of 202,000. Chemistries today show normal electrolytes. Potassium 4.9. BUN 45 with a creatinine of 9.4. Glucose 91 with a calcium level of 8.2. Microbiology: Blood cultures are negative at 24 hours. IMAGING STUDIES: X-ray of his feet bilaterally show cellulitis with no evidence for osteomyelitis. Positive stable fracture distal phalanx of the left foot. Arterial Doppler of his lower extremities show severe peripheral vascular disease. ASSESSMENT: 1. End-stage renal disease. This is secondary to longstanding diabetic nephropathy. The patient will continue Tuesday, Tuesday and Tuesday dialysis. He dialyzes 4 hours with each dialysis treatment. 2. Bilateral lower extremity cellulitis with poorly healing wounds of his lower extremities bilaterally. No evidence for osteomyelitis. The patient has evidence for severe peripheral vascular disease as evidenced by arterial Doppler study. He is being evaluated by Vascular Surgery, Interventional Radiology and Podiatry. Perhaps possible angiogram if the patient is felt not to have too high of a risk if he is exposed to dye. We could always dialyze him post dye studies so he has no issues in terms of the kidney. 3. History of [id number] diabetes mellitus. The patient is currently off all oral medication for diabetes. Sugar is controlled. 4. History of hypertension. Mild elevation of blood pressure noted. The patient was only on diuretic therapy and p.r.n. calcium channel brett therapy. 5. History of secondary hyperparathyroidism. The patient will continue PhosLo therapy. He was on 4 tablets three times a day. We will check a phosphorus level with tomorrow's dialysis. No history of anemia present. Hemoglobin is excellent at 14. PLAN: 1. Appreciate vascular evaluation, ID evaluation, podiatry evaluation, and interventional radiology input. 2. Hemodialysis Tuesday, Tuesday, and Tuesday. The patient will be dialyzed tomorrow. 3. Continue antibiotic therapy under the guidance of ID. The patient remains currently on cefepime and vancomycin. 4. Check phosphorus level and decide on quantity of PhosLo that he will require to maintain his phosphorus in an acceptable range. 5. Continue medication for diabetic peripheral neuropathy. 6. Okay from my standpoint to continue Lasix as the patient continues to make urine and this assists in increasing his urine volume and decreasing the amount of ultrafiltration he requires on dialysis. 7. Continue with oral pain medicine for his lower extremity foot pain. 8. Continue renal diet. Thank you for letting me partake and share in the care of your patient. Quincy Viveros MD
[2018-10-17] MEDS ORDERED: HYDROmorphone 2 mg/ml ISec IVP ONE (21:07)
[2018-10-18] MEDS: HYDROmorphone 2 mg/ml ISec IVP PRN ×4 (00:06→21:53)
[2018-10-18 08:22] LABS: BASO # 0.02 K/mm3 (0.0-2.0); BASO % 0.3 % (0.0-3.0); EOS # 0.2 (0.0-0.7); EOS % 2.9 % (1.5-5.0); GRAN # 5.31 (1.4-6.5); GRAN % 66.8 % (50.0-68.0); HEMOGLOBIN 12.7 g/dL (14.0-18.0); LYMPH # 1.5 (1.2-3.4); LYMPH % 18.7 % (22.0-35.0); MEAN CELL VOLUME 100.8 fl (80.0-105.0); MEAN CORPUSCULAR HEMOGLOBIN 33.4 pg (25.0-35.0); MEAN CORPUSCULAR HGB CONC 33.2 g/dl (31.0-37.0); MEAN PLATELET VOLUME 10.7 fl (7.0-11.0); MONO # 0.9 (0.1-0.6); MONO % 11.3 % (1.0-6.0); RBC 3.8 10^6/uL (3.5-6.1); RED CELL DISTRIBUTION WIDTH 15.1 % (11.5-14.5)
[2018-10-18 08:30] LABS: INR 1.25; PARTIAL THROMBOPLASTIN TIME 33.7 Seconds (25.1-36.5); PROTHROMBIN TIME 14.4 SECONDS (9.4-12.5)
--- NOTE | 2018-10-18 08:38 | CP.PCM.PN ---
<Leona Garcia - Last Filed: 10/18/18 12:26> Subjective - Date & Time of Evaluation Date of Evaluation: 10/18/18 Time of Evaluation: 08:37 - Subjective Subjective: ID progress note PGY-[address] Jack Pt seen in dialysis. He complained of red/itchy eyes, more to L than R. No visual changes, no pain. no fever/chills, leg pain improves Objective - Vital Signs/Intake and Output Vital Signs (last 24 hours): Temp Pulse Resp BP Pulse Ox 98.1 F 78 20 130/60 99 10/17/18 23:17 10/17/18 23:17 10/17/18 23:17 10/17/18 23:17 10/17/18 23:17 Intake and Output: 10/18/18 10/18/18 06:59 18:59 Intake Total 120 Balance 120 - Medications Medications: Current Medications Calcium Acetate (Phoslo) 2,668 mg PO WM [facility] Last Admin: 10/18/18 08:00 Dose: Not Given Furosemide (Lasix) 40 mg IVP DAILY [facility] Last Admin: 10/17/18 10:26 Dose: 40 mg Hydromorphone HCl (Dilaudid) 2 mg IVP Q4H PRN PRN Reason: Pain, severe (8-10) Last Admin: 10/18/18 06:15 Dose: 2 mg Cefepime HCl (Maxipime 1gm) 1 gm in 100 mls @ 100 mls/hr IVPB Q24H [facility]; Protocol Last Admin: 10/17/18 13:47 Dose: 100 mls/hr Pregabalin (Lyrica) 100 mg PO BID [facility] Last Admin: 10/17/18 17:04 Dose: 100 mg Ropinirole HCl (Requip) 1 mg PO TID [facility] Last Admin: 10/17/18 17:04 Dose: 1 mg - Labs Labs: 10/18/18 08:05 10/17/18 07:00 PT 14.4 SECONDS (9.4-12.5) H 10/18/18 08:05 INR 1.25 10/18/18 08:05 APTT 33.7 Seconds (25.1-36.5) 10/18/18 08:05 - Constitutional Appears: No Acute Distress - Head Exam Head Exam: ATRAUMATIC, NORMAL INSPECTION, NORMOCEPHALIC - Eye Exam Eye Exam: Conjunctival injection (L eye only), EOMI, PERRL. absent: Scleral icterus Pupil Exam: PERRL Additional comments: copious serous drainage - ENT Exam ENT Exam: Mucous Membranes Moist - Neck Exam Additional comments: supple - Respiratory Exam Respiratory Exam: Clear to Ausculation Bilateral, NORMAL BREATHING PATTERN. absent: Rales, Rhonchi, Wheezes - Cardiovascular Exam Cardiovascular Exam: REGULAR RHYTHM, +S1, +S2. absent: Murmur - GI/Abdominal Exam GI & Abdominal Exam: Soft, Normal Bowel Sounds. absent: Tenderness - Extremities Exam Extremities Exam: absent: Calf Tenderness, Pedal Edema Additional comments: dressing dry/intact. Mild strike through heels - Neurological Exam Neurological Exam: Alert, Awake, Oriented x3 - Psychiatric Exam Psychiatric exam: Normal Affect, Normal Mood - Skin Skin Exam: Dry, Warm Assessment and Plan - Assessment and Plan (Free Text) Plan: Mr Wheeler, 62M, with PMHx DM, HTN, severe PAD, ESRD on HD c/o severe pain in bot h feet that prevented him from bearing weight. On admission, pt is afebrile. WBC 7.3. Ultrasound arterial doppler showed severe RLE PAD and b/l tibial and small vessel disease. R 1st toe, L 5th toe, b/l heel dry gangrene with cellulitis complicated by poor circulation due to critical ischemic limb, severe PAD, and diabetes. Irritation conjunctivitis Severe PAD Diabetes ESRD on HD (MWF) Plan: Cefepime and vancomycin (day 2) Random vanc level today 30. No need to give today's dose Check random vanco next dialysis day (Saturday 10/20). Then will determine if vancomycin will be given after dialysis No need for MRI foot - low risk of osteomyelitis Pending MRA runoff, CTA runoff, or conventional arteriogram Podiatry on board [facility] heel relief shoes b/l pain control per primary Imaging/culture b/l foot x-ray shows soft tissue edema, no fracture. ESR 76 CRP 62 Blood culture neg x 1d Ultrasound arterial doppler showed severe RLE PAD and b/l tibial and small vessel disease. R SRI 0.44. L SRI not obtainable s/r/d/w Dr. Jack <Tae Jack S - Last Filed: 10/18/18 16:30> Objective - Vital Signs/Intake and Output Vital Signs (last 24 hours): Temp Pulse Resp BP Pulse Ox 98.1 F 91 H 18 150/102 H 95 10/18/18 14:00 10/18/18 14:00 10/18/18 14:00 10/18/18 14:00 10/18/18 14:00 Intake and Output: 10/18/18 10/18/18 06:59 18:59 Intake Total 120 Balance 120 - Medications Medications: Current Medications Artificial Tears (Artificial Tears) 0 ml OS HS [facility] Calcium Acetate (Phoslo) 2,668 mg PO WM [facility] Last Admin: 10/18/18 12:09 Dose: 2,668 mg Furosemide (Lasix) 40 mg IVP DAILY [facility] Last Admin: 10/18/18 10:00 Dose: Not Given Hydromorphone HCl (Dilaudid) 2 mg IVP Q4H PRN PRN Reason: Pain, severe (8-10) Last Admin: 10/18/18 12:09 Dose: 2 mg Cefepime HCl (Maxipime 1gm) 1 gm in 100 mls @ 100 mls/hr IVPB Q24H [facility]; Protocol Last Admin: 10/18/18 12:10 Dose: 100 mls/hr Pregabalin (Lyrica) 100 mg PO BID [facility] Last Admin: 10/18/18 12:10 Dose: 100 mg Ropinirole HCl (Requip) 1 mg PO TID [facility] Last Admin: 10/18/18 13:57 Dose: 1 mg - Labs Labs: 10/18/18 08:05 10/18/18 08:05 PT 14.4 SECONDS (9.4-12.5) H 10/18/18 08:05 INR 1.25 10/18/18 08:05 APTT 33.7 Seconds (25.1-36.5) 10/18/18 08:05 Assessment and Plan - Assessment and Plan (Free Text) Plan: Infectious diseases Attending Physician Attestation Patient seen and examined, discussed with medical research assistant. I have reviewed the patient's history of present illness, past medical, social, personal and family histories, pertinent physical exam findings, course so far in this hospital admission, pertinent laboratory and imaging results. I agree with the above findings, assessment and plan. In addition, continue Vancomycin and Cefepime for right foot cellulitis in this patient with dry gangrene of toes, R/o PVD. Follow up Vascular evaluation. Discussed with Podiatry.
[2018-10-18 08:57] LABS: ALB/GLOB RATIO 1.2 (1.1-1.8); ALBUMIN 3.5 g/dL (3.0-4.8); CALCIUM 8.5 mg/dL (8.4-10.5)
--- NOTE | 2018-10-18 09:47 | CP.PCM.PN ---
Subjective - Date & Time of Evaluation Date of Evaluation: 10/18/18 Time of Evaluation: 09:00 - Subjective Subjective: Patient in dialysis this morning. He was continuing to complain of pain in his legs yesterday and dilaudid was changed from SC to IV. Objective - Vital Signs/Intake and Output Vital Signs (last 24 hours): Temp Pulse Resp BP Pulse Ox 98 F 98 H 18 159/96 H 94 L 10/18/18 06:00 10/18/18 06:00 10/18/18 06:00 10/18/18 06:00 10/18/18 06:00 Intake and Output: 10/18/18 10/18/18 06:59 18:59 Intake Total 120 Balance 120 - Medications Medications: Current Medications Calcium Acetate (Phoslo) 2,668 mg PO WM [facility] Last Admin: 10/18/18 08:00 Dose: Not Given Furosemide (Lasix) 40 mg IVP DAILY [facility] Last Admin: 10/17/18 10:26 Dose: 40 mg Hydromorphone HCl (Dilaudid) 2 mg IVP Q4H PRN PRN Reason: Pain, severe (8-10) Last Admin: 10/18/18 06:15 Dose: 2 mg Cefepime HCl (Maxipime 1gm) 1 gm in 100 mls @ 100 mls/hr IVPB Q24H [facility]; Protocol Last Admin: 10/17/18 13:47 Dose: 100 mls/hr Pregabalin (Lyrica) 100 mg PO BID [facility] Last Admin: 10/17/18 17:04 Dose: 100 mg Ropinirole HCl (Requip) 1 mg PO TID [facility] Last Admin: 10/17/18 17:04 Dose: 1 mg - Labs Labs: 10/18/18 08:05 10/18/18 08:05 PT 14.4 SECONDS (9.4-12.5) H 10/18/18 08:05 INR 1.25 10/18/18 08:05 APTT 33.7 Seconds (25.1-36.5) 10/18/18 08:05 - Constitutional Appears: No Acute Distress - Head Exam Head Exam: ATRAUMATIC, NORMOCEPHALIC - Respiratory Exam Respiratory Exam: Clear to Ausculation Bilateral, NORMAL BREATHING PATTERN - Cardiovascular Exam Cardiovascular Exam: REGULAR RHYTHM, +S1, +S2 - GI/Abdominal Exam GI & Abdominal Exam: Soft, Normal Bowel Sounds. absent: Tenderness - Extremities Exam Extremities Exam: Pedal Edema Additional comments: Left 5th toe and Right big toe ulceration, bilateral heel wounds - Neurological Exam Neurological Exam: Alert, Awake, CN II-XII Intact, Oriented x3 Assessment and Plan - Assessment and Plan (Free Text) Assessment: Severe PVD Cellulitis/ulcerations of bilateral feet Diabetes ESRD on HD Plan: Patient is undergoing dialysis today. Blood pressure is elevated this morning, but will most likely decrease once fluid is taken out during dialysis. continue to monitor blood pressure. Patient is to have procedure done today by Dr. Peace Chiu for severe peripheral vascular disease. continue Vancomycin and Cefepime as per infectious disease. continue wound care as per podiatry.
[2018-10-18] MEDS: Cefepime 1gm in NS 100ml 1 GM/100 ML BAG IVPB SCH (12:10)
[2018-10-18] MEDS ORDERED: Aritificial Tears (15ml) OS ONE (13:00)
[2018-10-18] MEDS ORDERED: Lidocaine 2% Inj (20ml) ONE ×2 (15:06→16:42)
[2018-10-18] MEDS ORDERED: Iodixanol 320 MG/ML 200 ML BOTTLE IV ONE (15:06)
[2018-10-18] MEDS ORDERED: Nitroglycerin 50mg in D5W 50 MG/250 ML BOTTLE IV ONE (15:06)
[2018-10-18] MEDS ORDERED: Iodixanol 320 mg/ml 150 ml Bottle IV ONE (15:06)
[2018-10-18] MEDS ORDERED: Midazolam 2 MG/2 ML VIAL ONE ×3 (15:59→16:42)
[2018-10-18] MEDS ORDERED: Verapamil 2 ML ONE (17:02)
[2018-10-18] MEDS ORDERED: DiphenhydrAMINE 50 mg/ml Inj ONE (17:13)
--- NOTE | 2018-10-18 18:40 | VASCULAR ---
Date of service: 10/18/2018 PROCEDURE: Abdominal aortogram and bilateral lower extremity runoff. HISTORY: Severe peripheral vascular disease. Bilateral ischemic rest pain. Ischemic fissure right heel. End-stage renal disease. PHYSICIAN(S): Robnison Chiu MD. TECHNIQUE: The relative risks and indications of the procedure were explained the patient consent obtained. Patient placed supine on the arteriogram table left groin prepped and draped usual sterile fashion. Conscious sedation monitoring were provided throughout the procedure by a nurse. The left common femoral artery was punctured under fluoroscopic guidance and a 5 [place] sheath placed. Through the sheath number guidewire a 5 [place] flush catheter was placed in the distal abdominal aorta and bilateral oblique DSA abdominal pelvic arteriogram performed. Overlapping bilateral lower extremity DSA arteriograms were obtained from the inguinal ligaments to the ankles. A support guidewire was advanced over the bifurcation placed in the right profunda femoral artery. A 7 [place] 45 cm sheath was placed in the right common femoral artery. A 0.035 trail laser catheter and glidewire were used to select the proximal right SFA. The calcified occlusion of the proximal right SFA was probed with a wire and catheter. This was unsuccessful. Exchange is made for a Wildcat catheter. This was used to engage the calcified chronic occlusion and advanced to the mid right SFA occlusion. The catheter would not advance beyond this point despite various guidewires and attempts. The right leg was flexed and prepped in the adductor canal. The right popliteal artery above the patella was punctured under fluoroscopic guidance with a 21 gauge needle. Unfortunately entry was at the site of the occlusion. Through the needle magnification images of the right lower extremity runoff was obtained. Finally, the right lower leg was prepped laterally. Under ultrasound guidance, the mid right anterior tibial artery was punctured with a micropuncture set. Vasa dilators were given. A 5 [place] sheath was placed. A 5 [place] catheter was advanced retrograde in the right anterior tibial artery. Multiple attempts at negotiating the calcified right SFA occlusion in a retrograde direction were unsuccessful despite various catheters and guidewires. The sheaths were removed and hemostasis obtained. FINDINGS: The distal abdominal aorta is patent. Aortic bifurcation is patent. The common and external iliac arteries are patent. Smooth vascular calcification is seen. The internal iliac arteries are patent bilaterally The right common femoral artery is patent. The right profunda femoral artery is hypertrophied. The right SFA occludes 5 cm from its origin. Heavy calcification is noted. There reconstitution of the terminal right SFA. The right popliteal artery is heavily calcified. There is a critical stenosis in the right popliteal artery at the upper patella. There is severe right trifurcation and tibial occlusive disease. There is single vessel runoff via the right anterior tibial artery. The right posterior tibial and peroneal arteries are occluded. There is a focal moderate stenosis of the distal right anterior tibial artery. The right dorsalis pedis artery is patent. The plantar arch is occluded. There are small collaterals to the right heel. The left common femoral artery is patent. Left profunda femoral artery is hypertrophied. The left SFA occludes proximally. There is a heavily calcified long segment occlusion of the left SFA. The left popliteal artery reconstitutes near the knee. Once again there is severe left trifurcation and tibial occlusive disease. There is 2 vessel runoff via the left anterior tibial and peroneal arteries. Left posterior tibial artery is occluded IMPRESSION: 1. Bilateral long segment calcified SFA occlusions. The right SFA occlusion could not be crossed in an antegrade or retrograde direction. 2. Severe bilateral trifurcation, tibial, and pedal occlusive disease. 3. The patient can be evaluated for a right femoral-popliteal bypass. However his vessels are heavily calcified and he has 1 vessel tibial runoff.
[2018-10-18] MEDS ORDERED: HYDROmorphone 2 mg/ml ISec ONE (18:41)
[2018-10-18] MEDS ORDERED: HYDROmorphone 1 mg/ml ISec IVP ONE (21:37)
[2018-10-18] MEDS: Aritificial Tears (15ml) OS SCH (22:00)
--- NOTE | 2018-10-18 23:28 | PN ---
DATE: 10/18/2018 SUBJECTIVE: The patient is seen lying in bed. The patient is awake and alert. He is comfortable. He had dialysis earlier. He complains of pain in his feet. He reports that currently pain is not there because he just pain medication. PHYSICAL EXAMINATION: GENERAL: Middle-aged male lying in bed. VITAL SIGNS: Blood pressure 134/70, heart rate 119, temperature 98.4. HEENT: Normocephalic, atraumatic, positive pallor. NECK: Supple. No JVD. CARDIOPULMONARY: S1 and S2. Regular rate and rhythm. No murmur. No rub. LUNGS: Bilateral equal entry, bilateral equal expansion. ABDOMEN: Obese, distended, soft, nontender, bowel sounds present. EXTREMITIES: Dressing of both feet. INTAKE AND OUTPUT: Not charted. LABORATORY DATA: WBC 8, hemoglobin 12.7, hematocrit 38, platelets 201. Sodium 137, potassium 5.8, chloride 93, CO2 25, BUN 59, creatinine 11.4, glucose 93, calcium 8.5, phosphorus , magnesium 2.3. C-reactive protein 62.4. Alcohol level 32. Blood cultures, no growth. CURRENT MEDICATIONS: Dilaudid, Lasix 40 IV daily ?, Lyrica daily PhosLo, ropinirole, Zofran. ASSESSMENT: 1. Bilaterally left foot pain. 2. Hyperkalemia. 3. End-stage renal disease. 4. Hypertension. 5. Severe secondary hyperparathyroidism. PLAN: 1. Stable dialysis. 2. The patient is scheduled for angiogram today. 3. Continue phosphate binders. 4. Continue empiric antibiotics as per ID recommendations. Kisha Hopson MD
[2018-10-19] MEDS: HYDROmorphone 2 mg/ml ISec IVP PRN ×3 (02:42→17:24)
--- NOTE | 2018-10-19 06:43 | CP.PCM.PN ---
<Leona Garcia - Last Filed: 10/19/18 13:42> Subjective - Date & Time of Evaluation Date of Evaluation: 10/19/18 Time of Evaluation: 06:42 - Subjective Subjective: ID progress notes PGY-[address] Jack No acute complained. foot pain improves slightly (+) chills. No eye itchiness, no eye pain, no vision changes. Denies CP, SOB, N/V/D/C, dysuria Objective - Vital Signs/Intake and Output Vital Signs (last 24 hours): Temp Pulse Resp BP Pulse Ox 98 F 111 H 18 133/71 96 10/19/18 06:00 10/19/18 06:00 10/19/18 06:00 10/19/18 06:00 10/19/18 06:00 Intake and Output: 10/18/18 10/19/18 18:59 06:59 Intake Total 25 240 Balance 25 240 - Medications Medications: Current Medications Artificial Tears (Artificial Tears) 0 ml OS HS [facility] Last Admin: 10/18/18 22:00 Dose: Not Given Calcium Acetate (Phoslo) 2,668 mg PO WM [facility] Last Admin: 10/18/18 20:33 Dose: 2,668 mg Furosemide (Lasix) 40 mg IVP DAILY [facility] Last Admin: 10/18/18 10:00 Dose: Not Given Hydromorphone HCl (Dilaudid) 2 mg IVP Q4H PRN PRN Reason: Pain, severe (8-10) Last Admin: 10/19/18 02:42 Dose: 2 mg Cefepime HCl (Maxipime 1gm) 1 gm in 100 mls @ 100 mls/hr IVPB Q24H [facility]; Protocol Last Admin: 10/18/18 12:10 Dose: 100 mls/hr Ondansetron HCl (Zofran Inj) 4 mg IVP ONCE PRN PRN Reason: Nausea/Vomiting Pregabalin (Lyrica) 100 mg PO BID [facility] Last Admin: 10/18/18 20:34 Dose: 100 mg Ropinirole HCl (Requip) 1 mg PO TID YONIS Last Admin: 10/18/18 20:33 Dose: 1 mg - Labs Labs: 10/18/18 08:05 10/18/18 08:05 PT 14.4 SECONDS (9.4-12.5) H 10/18/18 08:05 INR 1.25 10/18/18 08:05 APTT 33.7 Seconds (25.1-36.5) 10/18/18 08:05 - Constitutional Appears: No Acute Distress - Head Exam Head Exam: ATRAUMATIC, NORMAL INSPECTION, NORMOCEPHALIC - Eye Exam Eye Exam: Conjunctival injection (L), EOMI, Normal appearance, PERRL, Scleral ic terus - ENT Exam ENT Exam: Mucous Membranes Moist - Neck Exam Additional comments: supple - Respiratory Exam Respiratory Exam: Clear to Ausculation Bilateral, NORMAL BREATHING PATTERN. absent: Rales, Rhonchi, Wheezes - Cardiovascular Exam Cardiovascular Exam: REGULAR RHYTHM, +S1, +S2, Murmur - GI/Abdominal Exam GI & Abdominal Exam: Soft, Normal Bowel Sounds. absent: Guarding, Rigid, Tenderness - Extremities Exam Extremities Exam: Tenderness (feet b/l. ). absent: Calf Tenderness - Neurological Exam Neurological Exam: Alert, Awake, Oriented x3 - Psychiatric Exam Psychiatric exam: Normal Affect, Normal Mood - Skin Skin Exam: Dry, Warm Assessment and Plan - Assessment and Plan (Free Text) Plan: Mr Wheeler, 62M, with PMHx DM, HTN, severe PAD, ESRD on HD c/o severe pain in both feet that prevented him from bearing weight. On admission, pt is afebrile. WBC 7.3. Ultrasound arterial doppler showed severe RLE PAD and b/l tibial and small vessel disease. Pt had angiogram runoff yesterday, found acute ischemic limb. Peripheral vascular disease is too severe for stenting. He was upgraded to telemetry for pulse check. He developed new onset sinua tachycardia. He is to have HD this afternoon R foot dry gangrenea with cellulitis complicated by poor circulation due to crit ical ischemic limb, severe PAD, and diabetes. Tachycardia 100-110 (SaO2 96% RA) Ischemic RLE due to Severe PAD @ bilateral trifurcation/tibiral/pedal occlusion New onset tachycardia Irritation conjunctivitis Diabetes (A1C 7.1) ESRD on HD (MWF) Plan: Cefepime and vancomycin (day 3) Random vanco is 22.4. No need for vanco today If dialysis tomorrow, will check vanco level and will determine if vancomycin will be given after dialysis Pending vein mapping - possible R fem/anterior tib bypass by Dr. Martin in [facility] Started atenolol 25 daily Carotid doppler: 20-39% L ICA stenose, 40-59% R ICA stenose No need for MRI foot - low risk of osteomyelitis Podiatry on board Darco heel relief shoes b/l pain control per primary and pain management Imaging/culture b/l foot x-ray shows soft tissue edema, no fracture. ESR 76 CRP 62 Blood culture neg x 2d Ultrasound arterial doppler showed severe RLE PAD and b/l tibial and small vessel disease. R SRI 0.44. L SRI not obtainable Abd aortogram with LE runoff (10/18) - SFA occlusion b/l - severe bilateral trifurcation, tibial, pedal occulsion - vessels heavily calcified and only 1 vessel tibial runoff s/r/d/w Dr. Jack <Tae Jack S - Last Filed: 10/19/18 22:56> Objective - Vital Signs/Intake and Output Vital Signs (last 24 hours): Temp Pulse Resp BP Pulse Ox 98.6 F 107 H 12 124/71 98 10/19/18 18:00 10/19/18 18:00 10/19/18 18:00 10/19/18 18:00 10/19/18 18:00 Intake and Output: 10/19/18 10/20/18 18:59 06:59 Intake Total 240 Balance 240 - Medications Medications: Current Medications Artificial Tears (Artificial Tears) 0 ml OS HS [facility] Last Admin: 10/18/18 22:00 Dose: Not Given Atenolol (Tenormin) 25 mg PO DAILY [facility] Last Admin: 10/19/18 11:31 Dose: 25 mg Calcium Acetate (Phoslo) 2,668 mg PO WM [facility] Last Admin: 10/19/18 17:23 Dose: 2,668 mg Cinacalcet (Sensipar) 30 mg PO DAILY [facility] Last Admin: 10/19/18 17:27 Dose: 30 mg Furosemide (Lasix) 40 mg IVP DAILY [facility] Last Admin: 10/19/18 11:31 Dose: 40 mg Hydromorphone HCl (Dilaudid) 2 mg IVP Q4H PRN PRN Reason: Pain, severe (8-10) Last Admin: 10/19/18 17:24 Dose: 2 mg Cefepime HCl (Maxipime 1gm) 1 gm in 100 mls @ 100 mls/hr IVPB Q24H [facility]; Protocol Last Admin: 10/19/18 17:22 Dose: 100 mls/hr Ondansetron HCl (Zofran Inj) 4 mg IVP ONCE PRN PRN Reason: Nausea/Vomiting Pregabalin (Lyrica) 100 mg PO BID [facility] Last Admin: 10/19/18 17:24 Dose: 100 mg Ropinirole HCl (Requip) 1 mg PO TID YONIS Last Admin: 10/19/18 17:24 Dose: 1 mg - Labs Labs: 10/19/18 07:00 10/19/18 11:23 PT 14.4 SECONDS (9.4-12.5) H 10/18/18 08:05 INR 1.25 10/18/18 08:05 APTT 33.7 Seconds (25.1-36.5) 10/18/18 08:05 Assessment and Plan - Assessment and Plan (Free Text) Plan: Infectious diseases Attending Physician Attestation Patient seen and examined, discussed with medical records auditor. I have reviewed the patient's history of present illness, past medical, social, personal and family histories, pertinent physical exam findings, course so far in this hospital admission, pertinent laboratory and imaging results. I agree with the above findings, assessment and plan. In addition, continue Vancomycin and Cefepime for right foot cellulitis associated with dry gangrene of toes and severe PAD. Follow up vascular surgery plans and will continue to monitor clinically.
[2018-10-19 07:24] LABS: BASO # 0.02 K/mm3 (0.0-2.0); BASO % 0.2 % (0.0-3.0); EOS # 0.1 (0.0-0.7); EOS % 0.8 % (1.5-5.0); GRAN # 7.32 (1.4-6.5); GRAN % 74.2 % (50.0-68.0); HEMOGLOBIN 13.1 g/dL (14.0-18.0); LYMPH # 1.3 (1.2-3.4); LYMPH % 13.2 % (22.0-35.0); MEAN CELL VOLUME 103.5 fl (80.0-105.0); MEAN CORPUSCULAR HEMOGLOBIN 33.1 pg (25.0-35.0); MEAN PLATELET VOLUME 10.7 fl (7.0-11.0); MONO # 1.1 (0.1-0.6); MONO % 11.6 % (1.0-6.0); RBC 3.96 10^6/uL (3.5-6.1); RED CELL DISTRIBUTION WIDTH 15.3 % (11.5-14.5); WHITE BLOOD COUNT 9.9 10^3/uL (4.5-11.0)
--- NOTE | 2018-10-19 08:32 | CP.PCM.PN ---
Subjective - Date & Time of Evaluation Date of Evaluation: 10/19/18 Time of Evaluation: 08:10 - Subjective Subjective: Patient is seen this morning in room 271 bed 2. He underwent angiogram yesterday by Dr. Robinson Chiu and was then transferred to telemetry for monitoring. Patient's heart rate is elevated at around 110. He denies palpitations or chest pain. Objective - Vital Signs/Intake and Output Vital Signs (last 24 hours): Temp Pulse Resp BP Pulse Ox 98 F 111 H 18 133/71 96 10/19/18 06:00 10/19/18 06:00 10/19/18 06:00 10/19/18 06:00 10/19/18 06:00 Intake and Output: 10/19/18 10/19/18 06:59 18:59 Intake Total 240 Balance 240 - Medications Medications: Current Medications Artificial Tears (Artificial Tears) 0 ml OS HS COUNTS [facility]CLUDE 234 BEDS AT [facility] Last Admin: 10/18/18 22:00 Dose: Not Given Atenolol (Tenormin) 25 mg PO DAILY COUNTS [facility]CLUDE 234 BEDS AT [facility] Calcium Acetate (Phoslo) 2,668 mg PO WM COUNTS [facility]CLUDE 234 BEDS AT [facility] Last Admin: 10/18/18 20:33 Dose: 2,668 mg Furosemide (Lasix) 40 mg IVP DAILY [facility]S [facility]CLUDE 234 BEDS AT [facility] Last Admin: 10/18/18 10:00 Dose: Not Given Hydromorphone HCl (Dilaudid) 2 mg IVP Q4H PRN PRN Reason: Pain, severe (8-10) Last Admin: 10/19/18 02:42 Dose: 2 mg Cefepime HCl (Maxipime 1gm) 1 gm in 100 mls @ 100 mls/hr IVPB Q24H COUNTS [facility]CLUDE 234 BEDS AT [facility]; Protocol Last Admin: 10/18/18 12:10 Dose: 100 mls/hr Ondansetron HCl (Zofran Inj) 4 mg IVP ONCE PRN PRN Reason: Nausea/Vomiting Pregabalin (Lyrica) 100 mg PO BID COUNTS [facility]CLUDE 234 BEDS AT [facility] Last Admin: 10/18/18 20:34 Dose: 100 mg Ropinirole HCl (Requip) 1 mg PO TID COUNTS [facility]CLUDE 234 BEDS AT [facility] Last Admin: 10/18/18 20:33 Dose: 1 mg - Labs Labs: 10/19/18 07:00 10/18/18 08:05 PT 14.4 SECONDS (9.4-12.5) H 10/18/18 08:05 INR 1.25 10/18/18 08:05 APTT 33.7 Seconds (25.1-36.5) 10/18/18 08:05 - Constitutional Appears: No Acute Distress - Head Exam Head Exam: ATRAUMATIC, NORMOCEPHALIC - Respiratory Exam Respiratory Exam: Clear to Ausculation Bilateral, NORMAL BREATHING PATTERN - Cardiovascular Exam Cardiovascular Exam: Tachycardia, +S1, +S2 - GI/Abdominal Exam GI & Abdominal Exam: Soft, Normal Bowel Sounds. absent: Tenderness - Neurological Exam Neurological Exam: Alert, Awake, CN II-XII Intact, Oriented x3 Assessment and Plan - Assessment and Plan (Free Text) Assessment: Cellulitis BL feet with ulcerations left 5th digit and right big toe Severe PVD Tachycardia DMII ESRD on HD Plan: Patient underwent angiogram yesterday. Peripheral vascular disease is too calcified for stenting. Dr. Peace Chiu to speak with vascular surgeon regarding case. Patient to have carotid doppler to rule out carotid disease. Patient is tachycardic. Will start Atenolol 25 mg daily. Patient to have dialysis today. continue IV Meropenem as per infectious disease. continue wound care as per podiatry. Patient to receive special shoes from PT.
--- NOTE | 2018-10-19 11:01 | CP.PCM.PN ---
<Ayleen Sanchez - Last Filed: 10/19/18 11:17> Subjective - Date & Time of Evaluation Date of Evaluation: 10/19/18 Time of Evaluation: 11:01 - Subjective Subjective: Podiatry Progress Note for Dr. Lewis: 62M patient seen and evaluated for b/l foot pain and severe PAD. Patient resting comfortably and in NAD. Reports b/l leg pain is well controlled at this time. Patient aware of plan for vein mapping, potential fem/anterior tib bypass, with transfer to [facility] with Dr. Martin. He denies any new pedal complaints. Denies N/V/F/SOB/CP. Objective - Vital Signs/Intake and Output Vital Signs (last 24 hours): Temp Pulse Resp BP Pulse Ox 98 F 111 H 18 133/71 96 10/19/18 06:00 10/19/18 06:00 10/19/18 06:00 10/19/18 06:00 10/19/18 06:00 Intake and Output: 10/19/18 10/19/18 06:59 18:59 Intake Total 240 Balance 240 - Medications Medications: Current Medications Artificial Tears (Artificial Tears) 0 ml OS HS [facility] Last Admin: 10/18/18 22:00 Dose: Not Given Atenolol (Tenormin) 25 mg PO DAILY [facility] Calcium Acetate (Phoslo) 2,668 mg PO WM [facility] Last Admin: 10/19/18 08:33 Dose: 2,668 mg Furosemide (Lasix) 40 mg IVP DAILY [facility] Last Admin: 10/18/18 10:00 Dose: Not Given Hydromorphone HCl (Dilaudid) 2 mg IVP Q4H PRN PRN Reason: Pain, severe (8-10) Last Admin: 10/19/18 02:42 Dose: 2 mg Cefepime HCl (Maxipime 1gm) 1 gm in 100 mls @ 100 mls/hr IVPB Q24H [facility]; Protocol Last Admin: 10/18/18 12:10 Dose: 100 mls/hr Ondansetron HCl (Zofran Inj) 4 mg IVP ONCE PRN PRN Reason: Nausea/Vomiting Pregabalin (Lyrica) 100 mg PO BID [facility] Last Admin: 10/18/18 20:34 Dose: 100 mg Ropinirole HCl (Requip) 1 mg PO TID [facility] Last Admin: 10/18/18 20:33 Dose: 1 mg - Labs Labs: 10/19/18 07:00 10/18/18 08:05 PT 14.4 SECONDS (9.4-12.5) H 10/18/18 08:05 INR 1.25 10/18/18 08:05 APTT 33.7 Seconds (25.1-36.5) 10/18/18 08:05 - Constitutional Appears: Well, Non-toxic, No Acute Distress - Head Exam Head Exam: ATRAUMATIC, NORMOCEPHALIC - Extremities Exam Additional comments: B/L lower extremity exam: Vascular: DP/PT non palpable, CFT > 3 seconds to digits, TG warm to warm, +1 pitting edema to dorsal aspect of foot bilaterally Ortho: Tenderness to palpation of heels bilaterally, MMT 5/5 in all compartments, no pain upon calf compression bilaterally Neuro: Gross sensation intact, protective sensation diminished Derm: Fissures with dried serous fluid appreciated to heels bilaterally, no purulence, no malodor, no tunneling, no tracking. Mild diffuse edema appreciated to b/l heels. Erythema appreciated to R plantar digits with xerosis. No open lesions, no clinical signs of infection. . Distal tip of R hallux showing discoloration consistent with ischemic changes - Neurological Exam Neurological Exam: Alert, Awake, Oriented x3 - Psychiatric Exam Psychiatric exam: Normal Affect, Normal Mood Assessment and Plan - Assessment and Plan (Free Text) Assessment: 62M patient seen and evaluated for bilateral foot pain and PAD. Plan: Patient seen and evaluated with Dr. Lewis Afebrile, WBC 9.9 B/L foot x-rays; moderate soft tissue edema, no emphysematous soft tissue changes or foreign bodies identified, no acute fracture appreciated Local wound care: optifoam to b/l heels Patient to wear optifoam boots at all time while in bed L/E SRI/PVR: severely abnormal R SRI, L SRI not obtainable, R illiac occlusive disease, b/l tibial and small vessel disease Vascular consult, reccs appreciated; patient underwent angiogram yesterday, PVD too severe for stenting. Plan for vein mapping with potential fem-pop with Dr. Martin at [facility] ID on board, reccs appreciate; Cefepime and vancomycin (day 3) Darco shoe ordered for patient <Tena Lewis - Last Filed: 10/23/18 14:31> Objective - Vital Signs/Intake and Output Vital Signs (last 24 hours): Temp Pulse Resp BP Pulse Ox 99.3 F 107 H 18 91/56 L 96 10/20/18 14:00 10/20/18 14:00 10/20/18 14:00 10/20/18 14:00 10/20/18 14:00 - Labs Labs: 10/19/18 07:00 10/19/18 11:23 PT 14.4 SECONDS (9.4-12.5) H 10/18/18 08:05 INR 1.25 10/18/18 08:05 APTT 33.7 Seconds (25.1-36.5) 10/18/18 08:05 Attending/Attestation - Attestation I have fully participated in the care of the patient.: Yes I have reviewed all pertinent clinical information, including history, physical exam and plan: Yes
--- NOTE | 2018-10-19 11:15 | CP.PCM.APN ---
Subjective - Date & Time of Evaluation Date of Evaluation: 10/19/18 Time of Evaluation: 08:30 - Subjective Subjective: Pt seen and examined at bedside. In no acute distress. States that leg pain had improved. Objective - Vital Signs/Intake and Output Vital Signs (last 24 hours): Temp Pulse Resp BP Pulse Ox 98 F 111 H 18 133/71 96 10/19/18 06:00 10/19/18 06:00 10/19/18 06:00 10/19/18 06:00 10/19/18 06:00 Intake and Output: 10/19/18 10/19/18 06:59 18:59 Intake Total 240 Balance 240 - Medications Medications: Current Medications Artificial Tears (Artificial Tears) 0 ml OS HS [facility] Last Admin: 10/18/18 22:00 Dose: Not Given Atenolol (Tenormin) 25 mg PO DAILY [facility] Calcium Acetate (Phoslo) 2,668 mg PO WM [facility] Last Admin: 10/19/18 08:33 Dose: 2,668 mg Furosemide (Lasix) 40 mg IVP DAILY [facility] Last Admin: 10/18/18 10:00 Dose: Not Given Hydromorphone HCl (Dilaudid) 2 mg IVP Q4H PRN PRN Reason: Pain, severe (8-10) Last Admin: 10/19/18 02:42 Dose: 2 mg Cefepime HCl (Maxipime 1gm) 1 gm in 100 mls @ 100 mls/hr IVPB Q24H [facility]; Protocol Last Admin: 10/18/18 12:10 Dose: 100 mls/hr Ondansetron HCl (Zofran Inj) 4 mg IVP ONCE PRN PRN Reason: Nausea/Vomiting Pregabalin (Lyrica) 100 mg PO BID [facility] Last Admin: 10/18/18 20:34 Dose: 100 mg Ropinirole HCl (Requip) 1 mg PO TID [facility] Last Admin: 10/18/18 20:33 Dose: 1 mg - Labs Labs: 10/19/18 07:00 10/18/18 08:05 PT 14.4 SECONDS (9.4-12.5) H 10/18/18 08:05 INR 1.25 10/18/18 08:05 APTT 33.7 Seconds (25.1-36.5) 10/18/18 08:05 - Constitutional Appears: Well, No Acute Distress - Head Exam Head Exam: ATRAUMATIC - Eye Exam Eye Exam: Normal appearance - ENT Exam ENT Exam: Normal Exam - Neck Exam Neck Exam: Full ROM - Respiratory Exam Respiratory Exam: Clear to Ausculation Bilateral, NORMAL BREATHING PATTERN - Cardiovascular Exam Cardiovascular Exam: REGULAR RHYTHM, +S1, +S2 - GI/Abdominal Exam GI & Abdominal Exam: Soft, Normal Bowel Sounds - Rectal Exam Rectal Exam: Deferred - Extremities Exam Additional comments: AIYANA AVF +bruit/thrill + b/l dorsalis pedis pulses, faint - Neurological Exam Neurological Exam: Alert, Awake, Oriented x3 Assessment and Plan - Assessment and Plan (Free Text) Assessment: pt is a 62 y.o. male who is admitted for severe PVD. He is s/p angiogram yesterday. D/W Podiatry, pt is to have vein mapping done to eval for possible fem/anterior tib bypass by Dr. Martin in [facility]. Impressions Interventional Vascular Procedure 10/18/18 14:01 IMPRESSION: 1. Bilateral long segment calcified SFA occlusions. The right SFA occlusion could not be crossed in an antegrade or retrograde direction. 2. Severe bilateral trifurcation, tibial, and pedal occlusive disease. 3. The patient can be evaluated for a right femoral-popliteal bypass. However his vessels are heavily calcified and he has 1 vessel tibial runoff. Plan: Pain management On Cefepime IV per ID recs Pending vein mapping - possible fem/anterior tib bypass by Dr. Martin in [facility] Podiatry, ID, Vascular on consult Meds per MAR Will continue to follow
--- NOTE | 2018-10-19 11:48 | US ---
PROCEDURE: Bilateral carotid artery duplex ultrasound HISTORY: Carotid stenosis end-stage renal disease PHYSICIAN(S): Robinson Chiu MD. TECHNIQUE: Duplex sonography and color-flow Doppler were used to evaluate the carotid bifurcations and limited segments of the vertebral arteries bilaterally. FINDINGS: There is moderate to extensive heterogeneous echogenic plaque noted at the carotid bifurcations bilaterally. The origin of the right internal carotid artery is obscured by shadowing plaque. The peak systolic velocity in the proximal right internal carotid artery is 105 cm/sec. This corresponds to a 40-59 percent proximal right ICA stenosis. Moderately elevated systolic velocities are noted in the proximal right external carotid artery. There is antegrade flow in the right vertebral artery. The peak systolic velocity in the proximal left internal carotid artery is 87 cm/sec. This corresponds to a 20 to 39% proximal left ICA stenosis. Mildly elevated systolic velocities are noted in the proximal left external carotid artery. There is antegrade flow in the small left vertebral artery. IMPRESSION: 1. The origins of the ICA are obscured by shadowing plaque, greater on the right than the left 2. 40-59 percent proximal right ICA stenosis 3. 20-39 percent proximal left ICA stenosis 4. Antegrade flow in both vertebral arteries.
[2018-10-19 12:18] LABS: ALB/GLOB RATIO 1.1 (1.1-1.8); ALBUMIN 3.9 g/dL (3.0-4.8); CALCIUM 9.2 mg/dL (8.4-10.5)
--- NOTE | 2018-10-19 14:59 | US ---
Date of service: 10/19/2018 PROCEDURE: Lower extremity venous ultrasound HISTORY: pre-op LE by-pass. Evaluate greater saphenous vein for lower extremity bypass COMPARISON: TECHNIQUE: FINDINGS: The right GSV measures 8 mm at the saphenofemoral junction. In the proximal thigh, the right GSV measures 5 millimeters. In the mid and lower thigh the right GSV is small, measuring 2-3 mm. At the knee, the right GSV measures 3 mm. The right GSV below the knee measures 3-4 mm. The left GSV at the saphenofemoral junction measures 7 mm. The left GSV in the proximal thigh measures 5 mm. The left GSV in the mid to lower thigh measures 3-4 mm. It is superficial in location. The left GSV at the knee measures 3 mm. The left GSV in the calf measures 3-4 mm. IMPRESSION: The right GSV is somewhat small in the thigh. The left GSV has a proximal superficial branch. No evidence of thrombophlebitis is appreciated.
[2018-10-19] MEDS: Cefepime 1gm in NS 100ml 1 GM/100 ML BAG IVPB SCH (17:22)
[2018-10-20] MEDS: Aritificial Tears (15ml) OS SCH (01:20)
[2018-10-20] MEDS: HYDROmorphone 2 mg/ml ISec IVP PRN ×4 (01:20→16:28)
--- NOTE | 2018-10-20 07:19 | CP.PCM.PN ---
<Leona Garcia - Last Filed: 10/20/18 14:18> Subjective - Date & Time of Evaluation Date of Evaluation: 10/20/18 Time of Evaluation: 07:12 - Subjective Subjective: ID Progress Note PGY-[address] Jack Leg pain improves with dilaudid prn. No more chills. Denies F/C, SPRINGER, CP, SOB, N/V/D/C, dysuria Objective - Vital Signs/Intake and Output Vital Signs (last 24 hours): Temp Pulse Resp BP Pulse Ox 98.5 F 78 20 126/70 97 10/19/18 22:00 10/20/18 06:00 10/19/18 22:00 10/19/18 22:00 10/19/18 22:00 Intake and Output: 10/20/18 10/20/18 06:59 18:59 Intake Total 120 Balance 120 - Medications Medications: Current Medications Artificial Tears (Artificial Tears) 0 ml OS HS [facility] Last Admin: 10/20/18 01:20 Dose: 1 drop Atenolol (Tenormin) 25 mg PO DAILY [facility] Last Admin: 10/19/18 11:31 Dose: 25 mg Calcium Acetate (Phoslo) 2,668 mg PO WM [facility] Last Admin: 10/19/18 17:23 Dose: 2,668 mg Cinacalcet (Sensipar) 30 mg PO DAILY [facility] Last Admin: 10/19/18 17:27 Dose: 30 mg Furosemide (Lasix) 40 mg IVP DAILY [facility] Last Admin: 10/19/18 11:31 Dose: 40 mg Hydromorphone HCl (Dilaudid) 2 mg IVP Q4H PRN PRN Reason: Pain, severe (8-10) Last Admin: 10/20/18 06:22 Dose: 2 mg Cefepime HCl (Maxipime 1gm) 1 gm in 100 mls @ 100 mls/hr IVPB Q24H [facility]; Protocol Last Admin: 10/19/18 17:22 Dose: 100 mls/hr Ondansetron HCl (Zofran Inj) 4 mg IVP ONCE PRN PRN Reason: Nausea/Vomiting Pregabalin (Lyrica) 100 mg PO BID [facility] Last Admin: 10/19/18 17:24 Dose: 100 mg Ropinirole HCl (Requip) 1 mg PO TID [facility] Last Admin: 12/20/18 17:24 Dose: 1 mg - Labs Labs: 10/19/18 07:00 10/19/18 11:23 PT 14.4 SECONDS (9.4-12.5) H 10/18/18 08:05 INR 1.25 10/18/18 08:05 APTT 33.7 Seconds (25.1-36.5) 10/18/18 08:05 - Constitutional Appears: In Acute Distress - Head Exam Head Exam: ATRAUMATIC, NORMAL INSPECTION, NORMOCEPHALIC - Eye Exam Eye Exam: EOMI, Normal appearance, PERRL. absent: Scleral icterus Pupil Exam: NORMAL ACCOMODATION - ENT Exam ENT Exam: Mucous Membranes Moist - Neck Exam Additional comments: supple - Respiratory Exam Respiratory Exam: Clear to Ausculation Bilateral, NORMAL BREATHING PATTERN. absent: Rales, Rhonchi, Wheezes - Cardiovascular Exam Cardiovascular Exam: REGULAR RHYTHM, +S1, +S2, Murmur - GI/Abdominal Exam GI & Abdominal Exam: Soft. absent: Guarding, Rigid, Tenderness, Rebound - Extremities Exam Extremities Exam: absent: Calf Tenderness, Pedal Edema Additional comments: dressing d/c/i b/l - Back Exam Back Exam: absent: CVA tenderness (L), CVA tenderness (R) - Neurological Exam Neurological Exam: Alert, Awake, Oriented x3 - Psychiatric Exam Psychiatric exam: Normal Affect, Normal Mood - Skin Skin Exam: Dry, Warm Assessment and Plan - Assessment and Plan (Free Text) Plan: Mr Wheeler, 62M, with PMHx DM, HTN, severe PAD, ESRD on HD c/o severe pain in both feet that prevented him from bearing weight. On admission, pt is afebrile. WBC 7.3. Ultrasound arterial doppler showed severe RLE PAD and b/l tibial and small vessel disease. Angiogram runoff found acute ischemic limb. Peripheral vascular disease is too severe for stenting. R toes dry gangrenea with cellulitis complicated by poor circulation due to critical ischemic limb, severe PAD, and diabetes. Tachycardia resolved with atenolol Ischemic RLE due to Severe PAD @ bilateral trifurcation/tibiral/pedal occlusion New onset tachycardia Irritation conjunctivitis Diabetes (A1C 7.1) ESRD on HD (MWF) Plan: Cefepime and vancomycin (day 4) Random vanco 16 (pre-dialysis), will give 1 dose of vancomycin 500mg x 1 after dialysis Check random vanco level the morning before next dialysis. Then determine doses of vancomycin after dialysis vein mapping done for R fem/anterior tib bypass by Dr. Martin in [facility] No need for MRI foot - low risk of osteomyelitis Podiatry on board [place] heel relief shoes b/l pain control per primary and pain management Imaging/culture b/l foot x-ray shows soft tissue edema, no fracture. ESR 76 CRP 62 Blood culture neg x 2d Ultrasound arterial doppler showed severe RLE PAD and b/l tibial and small vessel disease. R SRI 0.44. L SRI not obtainable Abd aortogram with LE runoff (10/18) - SFA occlusion b/l - severe bilateral trifurcation, tibial, pedal occulsion - vessels heavily calcified and only 1 vessel tibial runoff Vein mapping: R GSV small in thight. L GSV has prox superficial branch. No thromboplebitis Carotid doppler: 20-39% L ICA stenose, 40-59% R ICA stenose s/r/d/w Dr. Jack <Tae Jack S - Last Filed: 10/20/18 22:30> Objective - Vital Signs/Intake and Output Vital Signs (last 24 hours): Temp Pulse Resp BP Pulse Ox 99.3 F 107 H 18 91/56 L 96 10/20/18 14:00 10/20/18 14:00 10/20/18 14:00 10/20/18 14:00 10/20/18 14:00 - Labs Labs: 10/19/18 07:00 10/19/18 11:23 PT 14.4 SECONDS (9.4-12.5) H 10/18/18 08:05 INR 1.25 10/18/18 08:05 APTT 33.7 Seconds (25.1-36.5) 10/18/18 08:05 Assessment and Plan - Assessment and Plan (Free Text) Plan: Infectious diseases Attending Physician Attestation Patient seen and examined, discussed with district medical examiner. I have reviewed the patient's history of present illness, past medical, social, personal and family histories, pertinent physical exam findings, course so far in this hospital admission, pertinent laboratory and imaging results. I agree with the above findings, assessment and plan. In addition, on Vancomycin and Cefepime for right foot cellulitis associated with dry gangrene of toes and severe PAD. Follow up vascular surgery plans.
--- NOTE | 2018-10-20 08:23 | PN ---
DATE: 10/19/2018 SUBJECTIVE: The patient is seen in the dialysis unit. He is awake, he is alert. He denies any pain currently in his feet. The patient had an angiogram done yesterday. Found to have severe calcification of bilateral SFA, severe occlusive disease in both feet. Potassium found to be 5.8 this morning. PHYSICAL EXAMINATION: GENERAL: Elderly male lying in bed in the dialysis unit. VITAL SIGNS: Blood pressure 141/86, heart rate 110, respiratory rate 20, temperature 98.2. HEENT: Normocephalic, atraumatic, positive pallor. NECK: Supple, no JVD. LUNGS: Bilateral equal air entry, bilateral equal expansion. CARDIAC: S1 and S2. Regular rate and rhythm. No murmur. No rub. ABDOMEN: Obese, distended, soft, nontender, bowel sounds present. EXTREMITIES: No lower extremity edema, dressing of both feet. Intake and output not charted. LABORATORY DATA: WBC 9.9, hemoglobin 13, hematocrit 41, platelets 222. Sodium 138, potassium 5.6, chloride 99, CO2 of 21, BUN 37, creatinine 8.3, glucose 95, calcium 9.2, phosphorus 7.4, magnesium 2.4, albumin 3.9. CURRENT MEDICATIONS: Dilaudid, Lasix 40 mg IV push daily, Lyrica, Maxipime 1 g daily, PhosLo 4 pills with every meal,Requip, atenolol and Zofran. ASSESSMENT: 1. Hyperkalemia. 2. Severe peripheral arterial disease, calcification of bilateral superficial femoral artery. 3. Tte-yclbrwz-ubcckidaz diabetes mellitus. 4. Hypertension. 5. End-stage renal disease. PLAN: 1. Extra dialysis treatment today, 2 hours, ultrafiltration of 1 kg. 2. Regular dialysis treatment tomorrow. 3. Vascular Surgery evaluation for possible right lower extremity fem-pop bypass. 4. Continue phosphate binders. 5. Start Sensipar 30 mg p.o. daily. Kisha Hopson MD
[2018-10-20 09:12] VITALS: RESP 18; O2SAT 96
--- NOTE | 2018-10-20 09:31 | CP.PCM.PN ---
Subjective - Date & Time of Evaluation Date of Evaluation: 10/20/18 Time of Evaluation: 08:30 - Subjective Subjective: Patient is seen this morning. He is going to be transferred to [facility] for fem- pop bypass surgery. He complains of pain in his right foot, subsides with Diluadid. Objective - Vital Signs/Intake and Output Vital Signs (last 24 hours): Temp Pulse Resp BP Pulse Ox 98.3 F 78 18 133/81 96 10/20/18 06:00 10/20/18 06:00 10/20/18 06:00 10/20/18 06:00 10/20/18 06:00 Intake and Output: 10/20/18 10/20/18 06:59 18:59 Intake Total 120 Balance 120 - Medications Medications: Current Medications Artificial Tears (Artificial Tears) 0 ml OS HS [facility] Last Admin: 10/20/18 01:20 Dose: 1 drop Atenolol (Tenormin) 25 mg PO DAILY [facility] Last Admin: 10/19/18 11:31 Dose: 25 mg Calcium Acetate (Phoslo) 2,668 mg PO WM [facility] Last Admin: 10/19/18 17:23 Dose: 2,668 mg Cinacalcet (Sensipar) 30 mg PO DAILY [facility] Last Admin: 10/19/18 17:27 Dose: 30 mg Furosemide (Lasix) 40 mg IVP DAILY [facility] Last Admin: 10/19/18 11:31 Dose: 40 mg Hydromorphone HCl (Dilaudid) 2 mg IVP Q4H PRN PRN Reason: Pain, severe (8-10) Last Admin: 10/20/18 06:22 Dose: 2 mg Cefepime HCl (Maxipime 1gm) 1 gm in 100 mls @ 100 mls/hr IVPB Q24H [facility]; Protocol Last Admin: 10/19/18 17:22 Dose: 100 mls/hr Ondansetron HCl (Zofran Inj) 4 mg IVP ONCE PRN PRN Reason: Nausea/Vomiting Pregabalin (Lyrica) 100 mg PO BID [facility] Last Admin: 10/19/18 17:24 Dose: 100 mg Ropinirole HCl (Requip) 1 mg PO TID [facility] Last Admin: 10/19/18 17:24 Dose: 1 mg - Labs Labs: 10/19/18 07:00 10/19/18 11:23 PT 14.4 SECONDS (9.4-12.5) H 10/18/18 08:05 INR 1.25 10/18/18 08:05 APTT 33.7 Seconds (25.1-36.5) 10/18/18 08:05 - Constitutional Appears: No Acute Distress - Head Exam Head Exam: ATRAUMATIC, NORMOCEPHALIC - Respiratory Exam Respiratory Exam: Clear to Ausculation Bilateral, NORMAL BREATHING PATTERN - Cardiovascular Exam Cardiovascular Exam: REGULAR RHYTHM, +S1, +S2 - GI/Abdominal Exam GI & Abdominal Exam: Soft, Normal Bowel Sounds. absent: Tenderness - Extremities Exam Additional comments: left 5th toe ulceration, right big toe ulceration, bilateral heel ulcers - Neurological Exam Neurological Exam: Alert, Awake, CN II-XII Intact, Oriented x3 Assessment and Plan - Assessment and Plan (Free Text) Assessment: Severe PVD Diabetes HTN Plan: Patient has severe peripheral vascular disease. He has throbbing pain in his feet. Angiogram was done. It shows bilateral calcified SFA occlusions, severe bilateral trifurcation, tibial and pedal occlusive disease. Patient needs right femoral-popliteal bypass. Patient has seen Dr. Martin, vascular surgeon, in the past for his peripheral vascular disease. Patient will be transferred to [facility] to have bypass surgery done. Heart rate improved with atenolol. continue dialysis as per nephrology.
[2018-10-20] MEDS ORDERED: Vancomycin 500mg in NS 500 MG/100 ML BAG IVPB STA (14:16)
[2018-10-20] MEDS: Cefepime 1gm in NS 100ml 1 GM/100 ML BAG IVPB SCH (16:15)
[2018-10-20 17:19] VITALS: BP 91/56; PULSE 107; TEMP 99.3
--- NOTE | 2018-10-20 19:07 | PN ---
DATE: 10/20/2018 SUBJECTIVE: The patient is seen lying in bed in the dialysis unit. He is awake, he is alert. He does not appear to be in any kind of distress at this time. PHYSICAL EXAMINATION: GENERAL: Elderly male lying in bed. VITAL SIGNS: Blood pressure 133/81, heart rate 78, respiratory rate 18, temperature 98.3. HEENT: Normocephalic, atraumatic, positive pallor. NECK: Supple, no JVD. LUNGS: Bilateral equal air entry, bilateral equal expansion. CARDIAC: S1 and S2. Regular rate and rhythm. No murmur. No rub. ABDOMEN: Obese, distended, soft, nontender, bowel sounds present. EXTREMITIES: No lower extremity edema. LABORATORY DATA: No new labs. CURRENT MEDICATIONS: Dilaudid, Lyrica, Maxipime, PhosLo, Requip, Sensipar, Zofran, atenolol. ASSESSMENT: 1. Severe peripheral arterial disease. 2. Hyperkalemia. 3. Anemia. 4. End-stage renal disease. 5. Hyperphosphatemia. PLAN: 1. Stable dialysis. 2. Vascular Surgery evaluation for fem-pop bypass. 3. Continue phosphate binders. 4. Continue empiric antibiotics. Kisha Hopson MD
--- NOTE | 2018-10-23 03:19 | DS ---
HISTORY OF PRESENT ILLNESS: This is a 62-year-old male with history of peripheral vascular disease; hypertension; end-stage renal disease, on dialysis; and diabetes, who presented to the [facility] Room with severe pain in both of his feet. There was erythema of both feet and cracked skin with open wounds in the left fourth and fifth toe and right big toe as well as bilateral heel ulcerations. The patient also has swelling of both legs. He said that the pain was so bad that he was unable to walk. HOSPITAL COURSE: The patient was admitted to the general medical floor. Arterial Doppler was done, which showed severe peripheral vascular disease. The patient was seen by Dr. Robinson Chiu, his interventional radiologist; Dr. Hopson and Dr. Viveros, who are his nephrologists; Dr. Hirsch and Dr. Jack who are Infectious Disease consultants and Dr. Lewis of Podiatry. The patient was given Dilaudid needed for the pain as he was not having relief with tramadol or Percocet. He was given Lasix IV for the swelling of the feet. He was also given special shoes by physical therapy. Angiogram was done, which showed bilateral calcified SFA occlusion, severe bilateral trifurcations, tibial and pedal occlusive disease. Dr. Robinson Chiu was unable to open any of the vessels due to the severe calcifications; he did say the patient should have a right femoral popliteal BiPAP. The patient had seen Dr. Martin who is a vascular surgeon in the past. Dr. Martin was spoken to regarding the case and agreed to take the patient to [facility] to have the fem-pop bypass done. The patient was transferred to [facility] to have the bypass surgery as without the bypass surgery, the patient will need amputation of his leg. DISCHARGE DIAGNOSES: Severe peripheral vascular disease; hypertension; diabetes; end-stage renal disease, on hemodialysis; cellulitis, bilateral feet with ulcerations bilateral heels, left fifth toe and right big toe. After the patient had angiogram, the patient was transferred to the telemetry unit for monitoring. He was tachycardiac and he was started on atenolol 25 mg once a day with the Tenormin; the patient's heart rate did normalize. DISCHARGE MEDICATIONS: Tenormin 25 mg once a day; PhosLo, four capsules p.o. Tuesday and Tuesday; Sensipar 30 mg daily; Lasix 20 mg daily; Dilaudid 2 mg IV every 4 hours as needed for pain; Maxipime 1 g daily, Lyrica 100 mg twice a day and ReQuip 1 mg three times a day. FOLLOWUP: The patient will be followed up in the office once he is discharged from [facility]. Aysha Boone MD
== END 2018-10-20 20:33 | disposition short-term general hospital (02) | DRG 299 ==
LOC: ED 10:20 → ERH 17:09 → 5RSO 21:22 → 2RSO 10-18 19:53 → 5RSO 10-19 16:34
PROVIDERS: ADMIT Internal Medicine; ATTEND Internal Medicine
PROC: B41DYZZ Fluoroscopy of Aorta and Bilateral Lower Extremity Arteries using Other Contrast (ICD-10-PCS; principal; 2018-10-18)
PROC: 5A1D70Z Performance of Urinary Filtration, Intermittent, Less than 6 Hours Per Day (ICD-10-PCS; 2018-10-18)
PROC: 5A1D70Z Performance of Urinary Filtration, Intermittent, Less than 6 Hours Per Day (ICD-10-PCS; 2018-10-19)
PROC: 5A1D70Z Performance of Urinary Filtration, Intermittent, Less than 6 Hours Per Day (ICD-10-PCS; 2018-10-20)
DX: E11.52 Type 2 diabetes mellitus with diabetic peripheral angiopathy with gangrene (principal); N18.6 End stage renal disease; L03.115 Cellulitis of right lower limb; L03.116 Cellulitis of left lower limb; I13.2 Hypertensive heart and chronic kidney disease with heart failure and with stage 5 chronic kidney disease, or end stage renal disease; I50.32 Chronic diastolic (congestive) heart failure; N25.81 Secondary hyperparathyroidism of renal origin; L97.419 Non-pressure chronic ulcer of right heel and midfoot with unspecified severity; L97.429 Non-pressure chronic ulcer of left heel and midfoot with unspecified severity; E11.621 Type 2 diabetes mellitus with foot ulcer; E11.22 Type 2 diabetes mellitus with diabetic chronic kidney disease; E11.21 Type 2 diabetes mellitus with diabetic nephropathy; E11.42 Type 2 diabetes mellitus with diabetic polyneuropathy; D63.1 Anemia in chronic kidney disease; E87.5 Hyperkalemia; E83.39 Other disorders of phosphorus metabolism; Z99.2 Dependence on renal dialysis